=== PATIENT | female | born 1945 | race Caucasian/White ===

== ENCOUNTER 2021-04-07 | Observation (INO) | payer MEDICARE ==
--- NOTE | 2021-04-07 00:37 | ED ---
Chest Pain HPI - General Stated Complaint: Chest Pain Time Seen by Provider: 04/07/21 00:07 Source: RN notes reviewed, old records reviewed Mode of arrival: ambulatory Limitations: no limitations - History of Present Illness Initial Comments: This is a 75-year-old female DF for evaluation. Patient Dese for evaluation of chest pain patient is concern for her heart. Patient still continues to feel like she is having pain throughout on arrival to emergency department. Patient has no prior history of SD or heart attack. Patient's medical history is only significant for high blood pressure Parkinson's disease. Denying any shortness of breath MD Complaint: chest pain -: days(s) Onset: during rest Pain Location: substernal Pain Radiation: LUE Severity: mild Severity scale (1-10): 2 Quality: tightness Consistency: intermittent Improves With: nothing Worsens With: nothing Context: other (none) Anginal Symptoms: sense of impending doom Other Symptoms: palpitations Treatments Prior to Arrival: none - Related Data Home Medications Medication Instructions Recorded Confirmed Chxo-Xldl-Uxhkl 25-100-200 mg 1 each PO TID 03/30/14 03/30/14 [Stalevo 100] lisinopriL [Zestril] 20 mg PO DAILY 03/30/14 03/30/14 Allergies Allergy/AdvReac Type Severity Reaction Status Date / Time No Known Allergies Allergy Verified 04/07/21 00:57 Review of Systems ROS Statement: Those systems with pertinent positive or pertinent negative responses have been documented in the HPI. ROS Other: All systems not noted in ROS Statement are negative. EKG Findings - EKG Comments: EKG Findings:: EKG is sinus rhythm 67, AL 168 QRS 76 QTC 528 Past Medical History Past Medical History: Hypertension Additional Past Medical History / Comment(s): Parkinson's disease History of Any Multi-Drug Resistant Organisms: None Reported Past Surgical History: Hysterectomy Past Psychological History: No Psychological Hx Reported Past Alcohol Use History: None Reported Past Drug Use History: None Reported General Exam General appearance: alert, in no apparent distress Head exam: Present: atraumatic, normocephalic, normal inspection Eye exam: Present: normal appearance, PERRL, EOMI. Absent: scleral icterus, conjunctival injection, periorbital swelling ENT exam: Present: normal exam, mucous membranes moist Neck exam: Present: normal inspection. Absent: tenderness, meningismus, lymphadenopathy Respiratory exam: Present: normal lung sounds bilaterally. Absent: respiratory distress, wheezes, rales, rhonchi, stridor Cardiovascular Exam: Present: regular rate, normal rhythm, normal heart sounds. Absent: systolic murmur, diastolic murmur, rubs, gallop, clicks GI/Abdominal exam: Present: soft, normal bowel sounds. Absent: distended, tenderness, guarding, rebound, rigid Extremities exam: Present: normal inspection, full ROM, normal capillary refill. Absent: tenderness, pedal edema, joint swelling, calf tenderness Back exam: Present: normal inspection Neurological exam: Present: alert, oriented X3, CN II-XII intact Psychiatric exam: Present: normal affect, normal mood Skin exam: Present: warm, dry, intact, normal color. Absent: rash Course Vital Signs 04/07/21 00:10 Temperature 99.1 F Pulse Rate 68 Respiratory 16 Rate Blood Pressure 147/99 O2 Sat by Pulse 94 L Oximetry - Reevaluation(s) Reevaluation #1: 04/07/21 02:03 Medical record is reviewed Reevaluation #2: 04/07/21 02:03 Patient has persistent chest pain here in the ER Reevaluation #3: 04/07/21 02:03 Patient family informed results and questions are answered - Consultations Consultation #1: Spoke with Dr. Kerr we'll admit this patient Chest Pain MDM - MDM 75 female DF for evaluation of chest pain. Patient has mild troponin bump, insignificant will be admitted for trending cardiac observation Disposition Clinical Impression: Chest pain Disposition: ADMITTED IP TO THIS HOSP Condition: Undetermined Is patient prescribed a controlled substance at d/c from ED?: No Referrals: Rick Sumner DO [Primary Care Provider] - 1-2 days
[2021-04-07 00:55] LABS: Basophils # (A) 0.1 k/uL (0-0.2); Basophils % (A) 1 %; Eosinophils # (A) 0.2 k/uL (0-0.7); Eosinophils % (A) 2 %; HCT 35.8 % (34.0-46.0); HGB 11.9 gm/dL (11.4-16.0); Lymphocytes # (A) 0.8 k/uL (1.0-4.8); Lymphocytes % (A) 9 %; MCH 29.7 pg (25.0-35.0); MCHC 33.1 g/dL (31.0-37.0); MCV 89.7 fL (80.0-100.0); Mean Platelet Volume 7.4; Monocytes # (A) 0.7 k/uL (0-1.0); Monocytes % (A) 7 %; Neutrophils # (A) 7.4 k/uL (1.3-7.7); Neutrophils % (A) 81 %; Platelet Count 260 k/uL (150-450); RBC 3.99 m/uL (3.80-5.40); RDW 13.5 % (11.5-15.5); WBC 9.2 k/uL (3.8-10.6)
[2021-04-07 01:06] LABS: ALT <6 U/L (4-34); AST 25 U/L (14-36); African American GFR (CKD) >90 (>60 ml/min/1.73 sqM); Albumin 3.8 g/dL (3.5-5.0); Alkaline Phosphatase 162 U/L (38-126); Anion Gap 8 mmol/L; Blood Urea Nitrogen 21 mg/dL (7-17); Calcium 9.3 mg/dL (8.4-10.2); Carbon Dioxide 25 mmol/L (22-30); Chloride 106 mmol/L (98-107); Glucose 124 mg/dL (74-99); Lipase 131 U/L (23-300); Magnesium 1.9 mg/dL (1.6-2.3); Non-African American GFR(CKD) 84 (>60 ml/min/1.73 sqM); Potassium 3.6 mmol/L (3.5-5.1); Sodium 139 mmol/L (137-145); Total Bilirubin 1.6 mg/dL (0.2-1.3); Total Protein 6.5 g/dL (6.3-8.2)
--- NOTE | 2021-04-07 01:14 | XR ---
EXAMINATION TYPE: XR chest 2V DATE OF EXAM: 04/07/2021 COMPARISON: NONE HISTORY: Chest pain TECHNIQUE: 2 views FINDINGS: There is no heart failure nor confluent pneumonic infiltrate. Costophrenic angles are clear . There are no hilar masses. There are chest leads. Thoracic aorta is atheromatous. Bony thorax shows T7 anterior wedging 25%. IMPRESSION: No active cardiopulmonary disease.
[2021-04-07 01:31] LABS: Prothrombin Time 10.5 sec (9.0-12.0)
[2021-04-07] MEDS ORDERED: ASPIRIN 81 MG PO STA (02:01)
[2021-04-07] MEDS ORDERED: MORPHINE SULFATE 4 MG/ML SYRINGE IV PRN (02:01)
[2021-04-07] MEDS ORDERED: NITROGLYCERIN SL TABS 0.4 MG TAB SUBLINGUAL PRN (02:01)
[2021-04-07] MEDS ORDERED: HEPARIN SODIUM 1,000 UN/ML (10ML VL) IV ONE (02:01)
[2021-04-07 02:06] LABS: Partial Thromboplastin Time 19.3 sec (22.0-30.0)
[2021-04-07] MEDS ORDERED: SODIUM CHLORIDE 0.9% 1,000 ML IV SCH (02:15)
[2021-04-07] MEDS: CARBIDOPA-LEVODOPA 25-100 MG 1 EACH TAB PO SCH ×2 (06:57→09:15)
[2021-04-07 08:35] VITALS: PULSE 72; RESP 16
[2021-04-07] MEDS ORDERED: CARBIDOPA-LEVODOPA 25-100 MG 1 EACH TAB PO SCH (09:00)
[2021-04-07] MEDS ORDERED: lisinopriL 20 MG TAB PO SCH (09:00)
[2021-04-07] MEDS ORDERED: METOPROLOL SUCCINATE (ER) 50 MG TAB.ER.24H PO SCH (09:00)
[2021-04-07 10:01] VITALS: BP 135/56; TEMP 98.2
--- NOTE | 2021-04-07 11:10 | ECHOF ---
Referral Reason:LV function MEASUREMENTS -------- HEIGHT: 152.4 cm WEIGHT: 40.8 kg BP: 135/56 RVIDd: 3.1 cm (< 3.3) IVSd: 1.5 cm (0.6 - 1.1) LVIDd: 3.2 cm (3.9 - 5.3) LVPWd: 1.4 cm (0.6 - 1.1) IVSs: 1.7 cm LVIDs: 1.4 cm LVPWs: 1.8 cm LAESV Index (A-L): 29.83 ml/m Ao Diam: 3.1 cm (2.0 - 3.7) AV Cusp: 2.1 cm (1.5 - 2.6) LA Diam: 3.3 cm (2.7 - 3.8) MV EXCURSION: 13.015 mm (> 18.000) MV EF SLOPE: 32 mm/s (70 - 150) EPSS: 0.1 cm MV E Ad: 0.78 m/s MV DecT: 275 ms MV A Ad: 1.10 m/s MV E/A Ratio: 0.71 RAP: 5.00 mmHg RVSP: 53.17 mmHg FINDINGS -------- Sinus rhythm. This was a technically adequate study. The left ventricular size is normal. There is moderate concentric left ventricular hypertrophy. O verall left ventricular systolic function is normal with, an EF between 55 - 60 %. The diastolic fi lling pattern is normal for the age of the patient 11.29. The right ventricle is normal in size. LA is midly dilated 29-33ml/m2. The right atrial size is normal. Eustachian valve seen in the right atrium (normal finding). Interatrial and interventricular septum intact. There is no evidence of aortic regurgitation. There is no evidence of aortic stenosis. There is trace to mild mitral regurgitation. Moderate tricuspid regurgitation present. There is moderate to severe pulmonary hypertension. The right ventricular systolic pressure, as measured by Doppler, is 53.17mmHg. Trace/mild (physiologic) pulmonic regurgitation. The aortic root size is normal. Normal inferior vena cava with normal inspiratory collapse consistent with estimated right atrial pre ssure of 5 mmHg. There is no pericardial effusion. CONCLUSIONS -------- 1. The left ventricular size is normal. 2. There is moderate concentric left ventricular hypertrophy. 3. Overall left ventricular systolic function is normal with, an EF between 55 - 60 %. 4. The diastolic filling pattern is normal for the age of the patient 11.29 5. LA is midly dilated 29-33ml/m2. 6. Eustachian valve seen in the right atrium (normal finding). 7. There is trace to mild mitral regurgitation. 8. Moderate tricuspid regurgitation present. 9. There is moderate to severe pulmonary hypertension. 10. The right ventricular systolic pressure, as measured by Doppler, is 53.17mmHg. 11. Trace/mild (physiologic) pulmonic regurgitation. PRODUCTION INSPECTOR: Jennifer Brooke RDCS
--- NOTE | 2021-04-07 15:15 | P.DS ---
Providers Date of admission: 04/07/21 02:01 Attending physician: Tin Castañeda Consults: 04/07/21 02:01 Consult Physician Urgent Consulting Provider: Pritesh Latif Consult Reason/Comments: cp Do you want consulting provider notified?: Yes Primary care physician: Rick Sumner [facility] Course: Please refer to my history of present illness for further details Patient Condition at Discharge: Fair Plan - Discharge Summary Discharge Rx Participant: No New Discharge Prescriptions: New Isosorbide Mononitrate ER [Imdur] 30 mg PO DAILY 30 Days #30 tab.er.24h Continue lisinopriL [Zestril] 20 mg PO DAILY@0630 Cholecalciferol [Vitamin D3 (25 Mcg = 1000 Iu)] 100 mcg PO HS amantadine HCL [Amantadine] 100 mg PO TID@0630,1200,1830 Atorvastatin [Lipitor] 40 mg PO HS Metoprolol Succinate (ER) [Toprol XL] 50 mg PO DAILY@0630 Carbidopa-Levodopa 25-100 mg [Sinemet 25-100 mg] 1 tab PO TID@0630,1200,1830 Vitamin B Complex 1 cap PO DAILY Calcium Carbonate [Calcium] 600 mg PO DAILY Discharge Medication List lisinopriL [Zestril] 20 mg PO DAILY@0630 03/30/14 [History] Atorvastatin [Lipitor] 40 mg PO HS 04/07/21 [History] Calcium Carbonate [Calcium] 600 mg PO DAILY 04/07/21 [History] Carbidopa-Levodopa 25-100 mg [Sinemet 25-100 mg] 1 tab PO TID@0630,1200,1830 04/07/21 [History] Cholecalciferol [Vitamin D3 (25 Mcg = 1000 Iu)] 100 mcg PO HS 04/07/21 [History] Isosorbide Mononitrate ER [Imdur] 30 mg PO DAILY 30 Days #30 tab.er.24h 04/07/21 [Rx] Metoprolol Succinate (ER) [Toprol XL] 50 mg PO DAILY@0630 04/07/21 [History] Vitamin B Complex 1 cap PO DAILY 04/07/21 [History] amantadine HCL [Amantadine] 100 mg PO TID@0630,1200,1830 04/07/21 [History] Follow up Appointment(s)/Referral(s): Rick Sumner DO [Primary Care Provider] - 04/12/21 2:15 am Mahad Mackey MD [STAFF PHYSICIAN] - 3 Weeks Patient Instructions/Handouts: Chest Pain (DC) Discharge Disposition: HOME SELF-CARE
--- NOTE | 2021-04-07 15:15 | P.HPIM ---
History of Present Illness Patient presents on 75-year-old female came in with comments of precordial chest pain moderate severity nonradiating no associated shortness of breath diaphoresis or lightheadedness pain committee resolved at this time. Patient denied any fever chills. Just pain is nonpruritic and not associated with food. Patient had an EKG which showed sinus rhythm no significant the abnormality except for some nonspecific ST-T wave changes. Patient had an echocardiogram which did not show any wall motion did show moderate pulmonary hypertension. Patient was cleared by cardiology patient was subsequently discharged. He does have history of Parkinson's REVIEW OF SYSTEMS: CONSTITUTIONAL: No fever, no malaise, no fatigue. HEENT: No recent visual problems or hearing problems. Denied any sore throat. CARDIOVASCULAR: No orthopnea, PND, no palpitations, no syncope. PULMONARY: No shortness of breath, no cough, no hemoptysis. GASTROINTESTINAL: No diarrhea, no nausea, no vomiting, no abdominal pain. NEUROLOGICAL: No headaches, no weakness, no numbness. HEMATOLOGICAL: Denies any bleeding or petechiae. GENITOURINARY: Denies any burning micturition, frequency, or urgency. MUSCULOSKELETAL/RHEUMATOLOGICAL: Denies any joint pain, swelling, or any muscle pain. ENDOCRINE: Denies any polyuria or polydipsia. The rest of the 14-point review of systems is negative. PHYSICAL EXAMINATION: GENERAL: The patient is alert and oriented x3, not in any acute distress. Well developed, well nourished. HEENT: Pupils are round and equally reacting to light. EOMI. No scleral icterus. No conjunctival pallor. Normocephalic, atraumatic. No pharyngeal erythema. No thyromegaly. CARDIOVASCULAR: S1 and S2 present. No murmurs, rubs, or gallops. PULMONARY: Chest is clear to auscultation, no wheezing or crackles. ABDOMEN: Soft, nontender, nondistended, normoactive bowel sounds. No palpable organomegaly. MUSCULOSKELETAL: No joint swelling or deformity. EXTREMITIES: No cyanosis, clubbing, or pedal edema. NEUROLOGICAL: Gross neurological examination did not reveal any focal deficits. SKIN: No rashes. Assessment and plan -Chest pain: Rule out a concurrent syndromes cardiology evaluated and cleared for discharge pain resolved -Moderate pulmonary hypertension because of her previous smoking history most probably -Parkinson's for which patient is on carbidopa and levodopa for which she'll continue -Hypertension -Hyperlipidemia -Coronary artery disease Patient is being discharged today Past Medical History Past Medical History: Hypertension Additional Past Medical History / Comment(s): Parkinson's disease History of Any Multi-Drug Resistant Organisms: None Reported Past Surgical History: Hysterectomy Past Psychological History: No Psychological Hx Reported Smoking Status: Former smoker Past Alcohol Use History: None Reported Past Drug Use History: None Reported Medications and Allergies Home Medications Medication Instructions Recorded Confirmed Type lisinopriL [Zestril] 20 mg PO DAILY@0630 03/30/14 04/07/21 History Atorvastatin [Lipitor] 40 mg PO HS 04/07/21 04/07/21 History Calcium Carbonate [Calcium] 600 mg PO DAILY 04/07/21 04/07/21 History Carbidopa-Levodopa 25-100 mg 1 tab PO TID@0630,1200,1830 04/07/21 04/07/21 History [Sinemet 25-100 mg] Cholecalciferol [Vitamin D3 (25 100 mcg PO HS 04/07/21 04/07/21 History Mcg = 1000 Iu)] Isosorbide Mononitrate ER [Imdur] 30 mg PO DAILY 30 Days #30 04/07/21 Rx tab.er.24h Metoprolol Succinate (ER) [Toprol 50 mg PO DAILY@0630 04/07/21 04/07/21 History XL] Vitamin B Complex 1 cap PO DAILY 04/07/21 04/07/21 History amantadine HCL [Amantadine] 100 mg PO TID@0630,1200,1830 04/07/21 04/07/21 History Allergies Allergy/AdvReac Type Severity Reaction Status Date / Time No Known Allergies Allergy Verified 04/07/21 08:18 Physical Exam Vitals: Vital Signs Temp Pulse Pulse Resp BP BP Pulse Ox 04/07/21 09:30 98.2 F 72 16 135/56 97 04/07/21 08:31 72 16 142/67 97 04/07/21 06:00 68 20 162/68 98 04/07/21 03:59 66 20 178/79 96 04/07/21 02:01 66 20 182/83 99 04/07/21 00:10 99.1 F 68 16 147/99 94 L Intake and Output 04/07/21 04/07/21 04/07/21 06:59 14:59 22:59 Other: Weight 40.823 kg 40.823 kg Results CBC & Chem 7: 04/07/21 00:39 04/07/21 00:39 Labs: Abnormal Lab Results - Last 24 Hours (Table) 04/07/21 04/07/21 04/07/21 Range/Units 00:39 00:39 00:39 Lymphocytes # 0.8 L (1.0-4.8) k/uL APTT 19.3 L (22.0-30.0) sec BUN 21 H (7-17) mg/dL Glucose 124 H (74-99) mg/dL Total Bilirubin 1.6 H (0.2-1.3) mg/dL Alkaline Phosphatase 162 H (38-126) U/L Thrombosis Risk Factor Assmnt - Choose All That Apply Any of the Below Risk Factors Present?: No Other Risk Factors: Yes Each Risk Factor Represents 3 Points: Age 75 years or older Other congenital or acquired thrombophilia - If yes, enter type in comment: No Thrombosis Risk Factor Assessment Total Risk Factor Score: 3 Thrombosis Risk Factor Assessment Level: Moderate Risk
--- NOTE | 2021-04-07 15:56 | CONS ---
CONSULTATION CHIEF COMPLAINT: Chest pain. Ariana is a 75-year-old lady with history of Parkinsonism, hypertension, and dyslipidemia who presented to hospital complaining of chest pain. She has had chest discomfort in the left precordial area without any shortness of breath or diaphoresis. The patient's movement disorder has gotten worse over the last several weeks and she has had recurrent falls including the last one about 2 weeks ago. The pain is probably musculoskeletal. An EKG shows sinus rhythm with nonspecific ST-T wave changes. The patient had 3 sets of cardiac enzymes that are all within normal limits. The BNP is elevated at 2318 and it is not related to congestive heart failure. The patient and her do not want any invasive procedures. There is no point in performing stress tests. I will obtain a 2D echo to rule out prior myocardial infarction versus LV function. The patient is already on optimal medical therapy and I will add Imdur 30 mg daily to her current medical regimen. PAST MEDICAL HISTORY: Significant for hypertension, dyslipidemia, Parkinsonism. MEDICATIONS: Medications at home include lisinopril 20 daily, amantadine 100 t.i.d., Toprol-XL 50 daily, Sinemet, calcium, and Lipitor. ALLERGIES: No known drug allergies. FAMILY HISTORY: Negative for premature coronary artery disease. SOCIAL HISTORY: Negative for smoking, EtOH abuse, or drug abuse. REVIEW OF SYSTEMS: HEENT is unremarkable. CARDIAC as described above. RESPIRATORY as described above. ALLERGY/IMMUNOLOGY: Negative. SKIN: Negative. MUSCULOSKELETAL: Negative. ENDOCRINE: Negative. CONSTITUTIONAL: Negative. ONCOLOGICAL: Negative. HEATER INSTALLER: Significant for movement disorder. PHYSICAL EXAM: On exam, patient is comfortable at rest. Vital signs are stable. There is no jugular venous distention. Carotid upstroke is normal. There is no bruit. CHEST: Exam reveals good air entry bilaterally. HEART: Exam reveals first and second heart sounds. No gallop. No murmur. ABDOMEN: Soft. EXAM OF EXTREMITIES: Did not reveal any edema. Peripheral pulses are felt. HEATER INSTALLER EXAM: HEATER INSTALLER exam shows that the patient has movement disorder. EKG shows nonspecific ST-T wave changes. Cardiac enzymes are negative. ASSESSMENT: Precordial chest pain, atypical, probably noncardiac, but we cannot rule out ischemic heart disease. We will treat her with optimal medical therapy for presumptive diagnosis of CAD. I will obtain a 2D echo. She is not a candidate for either invasive or noninvasive testing and she does want to go through invasive testing in any event. From my standpoint, patient can be discharged home and outpatient followup arranged through her primary care physician. Thank you for allowing me to participate in the care of this pleasant lady. CLARENCE / SHANE: [id number] /
[2021-04-07] MEDS ORDERED: ATORVASTATIN 40 MG TAB PO SCH (21:00)
[2021-04-08] MEDS ORDERED: ASPIRIN 325 MG TAB PO SCH (09:00)
[2021-04-08] MEDS ORDERED: ISOSORBIDE MONONITRATE ER 60 MG TAB.ER.24H PO SCH ×2 (09:00)
[2021-04-08] MEDS ORDERED: ISOSORBIDE MONONITRATE ER 30 MG TAB.ER.24H PO SCH (09:00)
== END 2021-04-07 13:50 | disposition home or self-care (01) ==
LOC: EC → 6NMEDSUR 02:01
PROVIDERS: ADMIT Internal Medicine; ATTEND Internal Medicine
DX: R07.2 Precordial pain (principal); I27.20 Pulmonary hypertension, unspecified; G20 Parkinson's disease; I10 Essential (primary) hypertension; E78.5 Hyperlipidemia, unspecified; I25.10 Atherosclerotic heart disease of native coronary artery without angina pectoris; G25.9 Extrapyramidal and movement disorder, unspecified; R29.6 Repeated falls; Z79.899 Other long term (current) drug therapy; Z87.891 Personal history of nicotine dependence; Z90.710 Acquired absence of both cervix and uterus
CPT/HCPCS: 99285; 36415; 93005; 93306; 83880; 80053; 83690; 83735; 84484; 85025; 85610; 85730; 71046; G0378; J1644

== ENCOUNTER → 2021-06-07 | Outpatient (CLI) | payer MEDICARE ==
[2021-06-08 16:11] LABS: Folate, Serum >24.0 ng/mL
== END | disposition home or self-care (01) ==
LOC: LABWHC1 14:42
PROVIDERS: ATTEND Psychiatry & Neurology Neurology
DX: R41.3 Other amnesia (principal)
CPT/HCPCS: 36415; 82607; 82746

== ENCOUNTER 2021-06-29 16:52 | Inpatient (IN) | payer MEDICARE ==
[2021-06-29] MEDS ORDERED: SODIUM CHLORIDE 0.9% 500 ML 500 ML IV ONE (20:16)
--- NOTE | 2021-06-29 20:19 | ED ---
Altered Mental Status HPI - General Chief Complaint: Altered Mental Status Stated Complaint: Sent by /Isabela Time Seen by Provider: 06/29/21 20:07 Source: patient, family (), RN notes reviewed, old records reviewed Mode of arrival: wheelchair Limitations: physical limitation - History of Present Illness Initial Comments: This is a 76-year-old female patient presents to the emergency room with her . Her states that she has been increasingly weak and hallucinating for the past 5 days. She fell out of bed yesterday and sustained an abrasion and bruise to the left side of her face. He states that her Parkinson's is getting worse and he is unable to care for her at home. He did call Dr. Sumner and they told her to come to the emergency room for evaluation. Denies any fevers, nausea vomiting or diarrhea. He states that her urine is dark in color and she has had poor oral intake. MD Complaint: altered mental status -: days(s) (5) Consistency of Symptoms: waxing and waning Context: other (History of Parkinson's) Associated Symptoms: difficulty walking, other (Constipation, fell out of bed) - Related Data Home Medications Medication Instructions Recorded Confirmed lisinopriL [Zestril] 20 mg PO DAILY@0630 03/30/14 06/29/21 Atorvastatin [Lipitor] 40 mg PO HS 04/07/21 06/29/21 Calcium Carbonate [Calcium] 600 mg PO DAILY 04/07/21 06/29/21 Carbidopa-Levodopa 25-100 mg 1 tab PO TID@0630,1200,1830 04/07/21 06/29/21 [Sinemet 25-100 mg] Cholecalciferol [Vitamin D3 (25 100 mcg PO HS 04/07/21 06/29/21 Mcg = 1000 Iu)] Metoprolol Succinate (ER) [Toprol 50 mg PO DAILY@0630 04/07/21 06/29/21 XL] amantadine HCL [Amantadine] 100 mg PO TID@0630,1200,1830 04/07/21 06/29/21 Carbidopa/Levodopa [Parcopa 25-100 1 tab SL BID PRN 06/29/21 06/29/21 mg Odt] Cbd Oil 75 mg PO BID 06/29/21 06/29/21 Donepezil HCl [Aricept] 5 mg PO DAILY 06/29/21 06/29/21 Super B Complex 1 tab PO DAILY 06/29/21 06/29/21 Previous Rx's Medication Instructions Recorded Isosorbide Mononitrate ER [Imdur] 30 mg PO DAILY 30 Days #30 04/07/21 tab.er.24h Allergies Allergy/AdvReac Type Severity Reaction Status Date / Time No Known Allergies Allergy Verified 06/29/21 18:38 Review of Systems ROS Statement: Those systems with pertinent positive or pertinent negative responses have been documented in the HPI. ROS Other: All systems not noted in ROS Statement are negative. Past Medical History Past Medical History: Hypertension Additional Past Medical History / Comment(s): Parkinson's disease History of Any Multi-Drug Resistant Organisms: None Reported Past Surgical History: Hysterectomy Past Psychological History: No Psychological Hx Reported Smoking Status: Former smoker Past Alcohol Use History: None Reported Past Drug Use History: None Reported General Exam Limitations: altered mental status, physical limitation General appearance: alert Head exam: Present: other (Bruising to the left cheek bone abrasion to the nose) Eye exam: Present: normal appearance, PERRL, EOMI. Absent: scleral icterus, conjunctival injection, periorbital swelling ENT exam: Present: normal exam, mucous membranes dry Neck exam: Present: normal inspection, other (Patient has a soft collar on, previous neck injury several years ago). Absent: meningismus Respiratory exam: Present: normal lung sounds bilaterally. Absent: respiratory distress, wheezes, rales, rhonchi, stridor Cardiovascular Exam: Present: normal rhythm, bradycardia, normal heart sounds. Absent: systolic murmur, diastolic murmur, rubs, gallop, clicks, JVD GI/Abdominal exam: Present: soft, normal bowel sounds. Absent: distended, tenderness, guarding, rebound, rigid Extremities exam: Present: normal inspection, full ROM, normal capillary refill. Absent: tenderness, pedal edema, joint swelling, calf tenderness Neurological exam: Present: alert Expanded Neurological exam: Present: tremor (Bilateral arms) Cerebellar function: Finger to Nose: Abnormal Right, Abnormal Left Motor strength exam: RUE: 4, LUE: 4, RLE: 4, LLE: 4 Eye Response: (4) open spontaneously Motor Response: (6) obeys commands Verbal Response: (4) confused conversation Johan Total: 14 Psychiatric exam: Present: flat affect Skin exam: Present: warm, dry, intact, normal color, abrasion (Nose), other (Bruising to the left cheek). Absent: rash Course Vital Signs 06/29/21 06/29/21 06/29/21 18:35 21:30 21:33 Temperature 97.9 F Pulse Rate 48 L 48 L Respiratory 19 18 Rate Blood Pressure 160/69 200/83 O2 Sat by Pulse 100 94 L Oximetry 06/29/21 06/30/21 23:03 00:00 Temperature 97.9 F Pulse Rate 52 L 53 L Respiratory 18 18 Rate Blood Pressure 141/98 140/79 O2 Sat by Pulse 94 L 96 Oximetry Medical Decision Making - Medical Decision Making EKG shows sinus bradycardia with a ventricular rate of 52. The troponin is positive at 0.080. CT the brain and C-spine shows mild degenerative disc changes with on cervical spine. There is chronic. Ventricular white matter ischemic changes with age related atrophy. There is no evidence of infarcts, mass or intracranial hemorrhage. Chest x-ray shows no acute cardiopulmonary process. There is a nodular opacity in the left lateral base summary to prior exam dated 04/07/2021. Patient will be admitted to the hospital to trend her troponin and evaluation for generalized weakness. I did speak with Dr Draper who advised to hold heparin and will trend troponin. Case discussed with Dr Dimas - Lab Data Result diagrams: 06/29/21 21:26 06/29/21 21:26 Lab Results 06/29/21 06/29/21 06/29/21 Range/Units 21:26 21:26 21:26 WBC 8.3 (3.8-10.6) k/uL RBC 3.33 L (3.80-5.40) m/uL Hgb 10.3 L (11.4-16.0) gm/dL Hct 30.7 L (34.0-46.0) % MCV 92.2 (80.0-100.0) fL MCH 31.0 (25.0-35.0) pg MCHC 33.6 (31.0-37.0) g/dL RDW 15.0 (11.5-15.5) % Plt Count 233 (150-450) k/uL MPV 7.5 Neutrophils % 85 % Lymphocytes % 8 % Monocytes % 5 % Eosinophils % 0 % Basophils % 0 % Neutrophils # 7.1 (1.3-7.7) k/uL Lymphocytes # 0.7 L (1.0-4.8) k/uL Monocytes # 0.4 (0-1.0) k/uL Eosinophils # 0.0 (0-0.7) k/uL Basophils # 0.0 (0-0.2) k/uL PT 11.4 (9.0-12.0) sec INR 1.1 (<1.2) APTT 22.2 (22.0-30.0) sec Sodium 141 (137-145) mmol/L Potassium 4.3 (3.5-5.1) mmol/L Chloride 107 (98-107) mmol/L Carbon Dioxide 24 (22-30) mmol/L Anion Gap 10 mmol/L BUN 25 H (7-17) mg/dL Creatinine 1.12 H (0.52-1.04) mg/dL Est GFR (CKD-EPI)AfAm 54 (>60 ml/min/1.73 sqM) Est GFR (CKD-EPI)NonAf 47 (>60 ml/min/1.73 sqM) Glucose 117 H (74-99) mg/dL Calcium 9.3 (8.4-10.2) mg/dL Total Bilirubin 2.1 H (0.2-1.3) mg/dL AST 26 (14-36) U/L ALT 6 (4-34) U/L Alkaline Phosphatase 118 (38-126) U/L Troponin I (0.000-0.034) ng/mL Total Protein 6.6 (6.3-8.2) g/dL Albumin 4.0 (3.5-5.0) g/dL Coronavirus (PCR) (Not Detectd) 06/29/21 06/29/21 Range/Units 21:26 22:20 WBC (3.8-10.6) k/uL RBC (3.80-5.40) m/uL Hgb (11.4-16.0) gm/dL Hct (34.0-46.0) % MCV (80.0-100.0) fL MCH (25.0-35.0) pg MCHC (31.0-37.0) g/dL RDW (11.5-15.5) % Plt Count (150-450) k/uL MPV Neutrophils % % Lymphocytes % % Monocytes % % Eosinophils % % Basophils % % Neutrophils # (1.3-7.7) k/uL Lymphocytes # (1.0-4.8) k/uL Monocytes # (0-1.0) k/uL Eosinophils # (0-0.7) k/uL Basophils # (0-0.2) k/uL PT (9.0-12.0) sec INR (<1.2) APTT (22.0-30.0) sec Sodium (137-145) mmol/L Potassium (3.5-5.1) mmol/L Chloride (98-107) mmol/L Carbon Dioxide (22-30) mmol/L Anion Gap mmol/L BUN (7-17) mg/dL Creatinine (0.52-1.04) mg/dL Est GFR (CKD-EPI)AfAm (>60 ml/min/1.73 sqM) Est GFR (CKD-EPI)NonAf (>60 ml/min/1.73 sqM) Glucose (74-99) mg/dL Calcium (8.4-10.2) mg/dL Total Bilirubin (0.2-1.3) mg/dL AST (14-36) U/L ALT (4-34) U/L Alkaline Phosphatase (38-126) U/L Troponin I 0.080 H* (0.000-0.034) ng/mL Total Protein (6.3-8.2) g/dL Albumin (3.5-5.0) g/dL Coronavirus (PCR) Not Detected (Not Detectd) - EKG Data Rate: bradycardia (Ventricular rate of 48, DE interval 0.162, QRS 0.86, QTC 0.414) Disposition Clinical Impression: ACS (acute coronary syndrome), Weakness Disposition: ADMITTED IP TO THIS [facility] Decision Date: 06/29/21 Decision Time: 23:39
--- NOTE | 2021-06-29 21:34 | XR ---
EXAMINATION TYPE: XR chest 1V portable DATE OF EXAM: 06/29/2021 COMPARISON: Chest radiograph 04/07/2021 HISTORY: Altered mental status TECHNIQUE: Single frontal view of the chest is obtained. FINDINGS: Cardiomediastinal silhouette and pulmonary vasculature are within normal limits. Increased reticular opacity and ill cuffing cuffing similar to prior examination. Nodular opacity at the left base simila r to prior. No consolidation, effusion or pneumothorax. IMPRESSION: 1. Chronic changes without an acute cardiac pulmonary process. 2. Nodular opacity the left lateral base similar to prior. Correlate with cross-sectional imaging if clinically warranted.
[2021-06-29 21:43] LABS: Basophils % (A) 0 %; Eosinophils % (A) 0 %; HCT 30.7 % (34.0-46.0); HGB 10.3 gm/dL (11.4-16.0); Lymphocytes # (A) 0.7 k/uL (1.0-4.8); Lymphocytes % (A) 8 %; MCHC 33.6 g/dL (31.0-37.0); MCV 92.2 fL (80.0-100.0); Mean Platelet Volume 7.5; Monocytes # (A) 0.4 k/uL (0-1.0); Monocytes % (A) 5 %; Neutrophils # (A) 7.1 k/uL (1.3-7.7); Neutrophils % (A) 85 %; Platelet Count 233 k/uL (150-450); RBC 3.33 m/uL (3.80-5.40); WBC 8.3 k/uL (3.8-10.6)
[2021-06-29] MEDS ORDERED: hydrALAZINE HCL 20 MG/ML 1 ML VIAL IVP STA (21:47)
[2021-06-29] MEDS ORDERED: CARBIDOPA-LEVODOPA 25-100 MG 1 EACH TAB PO STA (21:48)
[2021-06-29 21:52] LABS: INR 1.1 (<1.2); Partial Thromboplastin Time 22.2 sec (22.0-30.0); Prothrombin Time 11.4 sec (9.0-12.0)
[2021-06-29 21:55] LABS: Calcium 9.3 mg/dL (8.4-10.2); Potassium 4.3 mmol/L (3.5-5.1); Total Bilirubin 2.1 mg/dL (0.2-1.3); Total Protein 6.6 g/dL (6.3-8.2)
--- NOTE | 2021-06-29 23:26 | CT ---
EXAMINATION TYPE: CT brain terry martin DATE OF EXAM: 06/29/2021 COMPARISON: 03/30/2014 HISTORY: Fall CT DLP: 1194 mGycm, Automated exposure control for dose reduction was used. CONTRAST: Patient injected with 0 mL of Isovue 300. CT of the brain is performed utilizing 3 mm thick sections through the posterior fossa and 3 mm thick sections through the remaining calvarium. Study is performed within 24 hours of arrival to the hospital. No abnormal hyperdensity is present to suggest an acute intracranial hemorrhage. No mass lesion is evident. No acute infarcts are evident. Periventricular white matter hypodensity is present likely on the bas is of chronic white matter ischemic change. There is hypodensity along the anterior limb external cap jacquie left basal ganglion likely related to some ischemic change. No acute changes are identified. Ventricles and sulci are prominent for the patient age. Paranasal sinuses and mastoid air cells within the [id number] are clear. IMPRESSIONS: 1. Chronic periventricular white matter ischemic changes with age related atrophy. CT cervical spine. COMPARISON: None CT of the cervical spine is performed in the axial plane at 2 mm thick sections. Reconstructed image s in the coronal, and sagittal plane are reviewed on the computer. No acute fractures are evident. Vertebral body alignment is normal. Diffuse disc space narrowing is present. Prevertebral space is normal. Posterior spinal lamellar line is intact. Vertebral body heights are preserved. Some right paracentral endplate spurring is present at C5-C6. No AP spinal canal stenosis is present. 2 No neural foraminal stenosis is evident. IMPRESSIONS: 1. Mild degenerative disc changes within the cervical spine
[2021-06-29] MEDS ORDERED: NALOXONE 0.4 MG/ML 1 ML VIAL IV PRN (23:34)
[2021-06-29] MEDS ORDERED: NITROGLYCERIN SL TABS 0.4 MG TAB SUBLINGUAL PRN (23:36)
[2021-06-30] MEDS ORDERED: HEPARIN SODIUM 1,000 UN/ML (10ML VL) IV PRN (00:27)
[2021-06-30] MEDS ORDERED: HEPARIN SODIUM 1,000 UN/ML (10ML VL) IV ONE (00:27)
[2021-06-30] MEDS: HEPARIN SOD,PORK IN 0.45% NACL 25,000 UNIT in 0.45% NACL 1 250ML.BAG IV SCH (01:22)
[2021-06-30 01:45] LABS: Basophils % (A) 0 %; Eosinophils % (A) 0 %; HGB 10.6 gm/dL (11.4-16.0); Lymphocytes # (A) 0.8 k/uL (1.0-4.8); Lymphocytes % (A) 10 %; MCH 29.8 pg (25.0-35.0); MCHC 32.1 g/dL (31.0-37.0); Mean Platelet Volume 7.9; Monocytes # (A) 0.4 k/uL (0-1.0); Monocytes % (A) 5 %; Neutrophils # (A) 7.1 k/uL (1.3-7.7); Neutrophils % (A) 83 %; Platelet Count 249 k/uL (150-450); RBC 3.55 m/uL (3.80-5.40); RDW 15.1 % (11.5-15.5); WBC 8.5 k/uL (3.8-10.6)
[2021-06-30 02:06] LABS: Prothrombin Time 11.1 sec (9.0-12.0)
[2021-06-30 02:06] LABS: Appearance,Urine Cloudy (Clear); Bacteria,Urine Rare /hpf; Bilirubin,Urine Negative (Negative); Blood,Urine Small (Negative); Color,Urine Yellow; Glucose,Urine (UA) Negative (Negative); Hyaline Casts,Urine 15 /lpf (0-2); Ketones,Urine Negative (Negative); Leukocyte Esterase,Urine Large (Negative); Mucus,Urine Rare /hpf; Nitrite,Urine Negative (Negative); PH, Urine 5.5 (5.0-8.0); Protein,Urine 1+ (Negative); RBC,Urine 33 /hpf (0-5); Specific Gravity,Urine 1.016 (1.001-1.035); Squamous Epithelial Cell,Urine <1 /hpf (0-4); WBC,Urine 86 /hpf (0-5)
[2021-06-30 02:11] LABS: Partial Thromboplastin Time 21.4 sec (22.0-30.0)
[2021-06-30] MEDS ORDERED: hydrALAZINE HCL 20 MG/ML 1 ML VIAL IVP STA (04:39)
[2021-06-30] MEDS ORDERED: lisinopriL 20 MG TAB PO SCH (06:30)
[2021-06-30] MEDS: CARBIDOPA-LEVODOPA 25-100 MG 1 EACH TAB PO SCH ×3 (07:02→18:26)
[2021-06-30] MEDS: METOPROLOL SUCCINATE (ER) 50 MG TAB.ER.24H PO SCH (07:02)
[2021-06-30] MEDS ORDERED: ASPIRIN 325 MG TAB PO SCH (09:00)
[2021-06-30] MEDS: CLOPIDOGREL 75 MG TAB PO SCH (09:57)
[2021-06-30] MEDS: ISOSORBIDE MONONITRATE ER 30 MG TAB.ER.24H PO SCH (09:57)
[2021-06-30] MEDS: CALCIUM CARBONATE 500 MG CHEWABLE PO SCH (09:57)
[2021-06-30] MEDS: ASPIRIN 81 MG PO SCH (09:57)
[2021-06-30] MEDS: lisinopriL 20 MG TAB PO SCH ×2 (09:57→21:24)
[2021-06-30 10:48] LABS: Chol/HDL Ratio 1.69 Ratio; HDL Cholesterol 61.5 mg/dL (40.00-60.00); LDL Cholesterol,Calculated 27.4 mg/dL (0.0-131.0); Triglycerides 75.7 mg/dL (0.00-149.00); VLDL Calculation 15.14 mg/dL (5.00-40.00)
--- NOTE | 2021-06-30 12:00 | ECHOF ---
Referral Reason:abnormal troponins MEASUREMENTS -------- HEIGHT: 152.4 cm WEIGHT: 34.5 kg BP: RVIDd: 2.9 cm (< 3.3) IVSd: 1.0 cm (0.6 - 1.1) LVIDd: 3.6 cm (3.9 - 5.3) LVPWd: 1.0 cm (0.6 - 1.1) IVSs: 1.5 cm LVIDs: 2.0 cm LVPWs: 1.5 cm LA Diam: 2.6 cm (2.7 - 3.8) LAESV Index (A-L): 30.15 ml/m Ao Diam: 2.9 cm (2.0 - 3.7) AV Cusp: 1.9 cm (1.5 - 2.6) MV EXCURSION: 14.317 mm (> 18.000) MV EF SLOPE: 100 mm/s (70 - 150) EPSS: 0.3 cm MV E Ad: 1.07 m/s MV DecT: 177 ms MV A Ad: 0.56 m/s MV E/A Ratio: 1.91 RAP: 5.00 mmHg RVSP: 64.66 mmHg FINDINGS -------- Sinus rhythm. This was a technically good study. The left ventricular size is normal. Left ventricular wall thickness is normal. Overall left vent ricular systolic function is normal with, an EF between 60 - 65 %. The right ventricle is normal in size. LA is midly dilated 29-33ml/m2. The right atrium is normal in size. Interatrial and interventricular septum intact. There is mild aortic valve sclerosis. Trace to mild aortic regurgitation. Mild mitral annular calcification present. Mild mitral regurgitation is present. Mild tricuspid regurgitation present. There is severe pulmonary hypertension. The right ventricul ar systolic pressure, as measured by Doppler, is 64.66mmHg. Trace/mild (physiologic) pulmonic regurgitation. The aortic root size is normal. Normal inferior vena cava with normal inspiratory collapse consistent with estimated right atrial pre ssure of 5 mmHg. There is no pericardial effusion. CONCLUSIONS -------- 1. The left ventricular size is normal. 2. Left ventricular wall thickness is normal. 3. Overall left ventricular systolic function is normal with, an EF between 60 - 65 %. 4. LA is midly dilated 29-33ml/m2. 5. There is mild aortic valve sclerosis. 6. Trace to mild aortic regurgitation. 7. Mild mitral annular calcification present. 8. Mild mitral regurgitation is present. 9. Mild tricuspid regurgitation present. 10. There is severe pulmonary hypertension. 11. The right ventricular systolic pressure, as measured by Doppler, is 64.66mmHg. 12. Trace/mild (physiologic) pulmonic regurgitation. 13. There is no pericardial effusion. REFERENCE INVESTIGATOR: Makayla White RDCS
[2021-06-30] MEDS: DONEPEZIL 5 MG TAB PO SCH (12:15)
--- NOTE | 2021-06-30 12:49 | P.CRDCN ---
History of Present Illness Consult date: 06/30/21 History of present illness: HISTORY OF PRESENT ILLNESS: This is a 76 year old female with a past medical history significant for hypertension, hyperlipidemia, and Parkinson's disease. 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 We have been asked to see the patient in consultation for abnormal troponins. Patient examined at the bedside. patient was brought to the hospital by her who apparently noticed that the patient has been more weak than normal and has been having hallucinations at home. The patient also fell out of bed yesterday according to ER documentation. The patient currently denies chest pain or pressure. She denies shortness of breath. She denies dizziness or lightheadedness. EKG reveals sinus mechanism with T-wave inversions in anterior lateral leads, seen on previous EKG Chest xray chronic changes without acute cardiac pulmonary process. Nodular opacities left lateral lung base similar to prior. Laboratory data: WBC 8.5. Hemoglobin 10.6. Platelet count 249. Sodium 141. Potassium 4.3. BUN 25. Creatinine 1.12. troponin 0.080. 0.086. 0.096. Current home cardiac medications include Imdur 30 mg daily, lisinopril 20 mg daily, metoprolol succinate 50mg daily, Lipitor 40 mg at night echocardiogram obtained revealed ejection fraction 60-65%, mild mitral regurgitation, mild tricuspid regurgitation, severe pulmonary hypertension REVIEW OF SYSTEMS: At the time of my exam: CONSTITUTIONAL: Denies fever or chills. HEENT: Denies blurred vision, vision changes, or eye pain. Denies hemoptysis CARDIOVASCULAR: Denies chest pain. Denies orthopnea. Denies PND. Denies palpitations RESPIRATORY: Denies shortness of breath. GASTROINTESTINAL: Denies abdominal pain. Denies nausea or vomiting. HEMATOLOGIC: Denies bleeding disorders. GENITOURINARY: Denies any blood in urine. SKIN: Denies pruitis. Denies rash. PHYSICAL EXAM: VITAL SIGNS: Reviewed. GENERAL: Well-developed in no acute distress. HEENT: Head is normocephalic. abrasion noted to left eye and nose.Pupils are equal, round. Sclerae anicteric. Mucous membranes of the mouth are moist. Neck supple. No JVD or thyromegaly LUNGS: Respirations even and unlabored. Lungs essentially clear to auscultation bilaterally. HEART: Regular rate and rhythm. S1 and S2 heard. ABDOMEN: Soft. Nondistended. Nontender. EXTREMITIES: Normal range of motion. No clubbing or cyanosis. Peripheral pulses intact. No lower extremity edema NEUROLOGIC: Awake and alert. Oriented x 3. ASSESSMENT: Generalized weakness and hallucinations, per Status post fall Non-STEMI Hypertension Hyperlipidemia Parkinson's disease PLAN: 2-D echo obtained and reviewed Resume home cardiac medications Increase lisinopril for optimal blood pressure control Add Plavix 75 mg daily Discontinue IV heparin Continue with conservative management at this time Further recommendations pending patient's course Nurse practitioner note has been reviewed by physician. Signing provider agrees with the documented findings, assessment, and plan of care. Past Medical History Past Medical History: Hypertension Additional Past Medical History / Comment(s): Parkinson's disease History of Any Multi-Drug Resistant Organisms: None Reported Past Surgical History: Hysterectomy Past Psychological History: No Psychological Hx Reported Smoking Status: Former smoker Past Alcohol Use History: None Reported Past Drug Use History: None Reported Medications and Allergies Home Medications Medication Instructions Recorded Confirmed Type lisinopriL [Zestril] 20 mg PO DAILY@0630 03/30/14 06/29/21 History Atorvastatin [Lipitor] 40 mg PO HS 04/07/21 06/29/21 History Calcium Carbonate [Calcium] 600 mg PO DAILY 04/07/21 06/29/21 History Carbidopa-Levodopa 25-100 mg 1 tab PO TID@0630,1200,1830 04/07/21 06/29/21 History [Sinemet 25-100 mg] Cholecalciferol [Vitamin D3 (25 100 mcg PO HS 04/07/21 06/29/21 History Mcg = 1000 Iu)] Isosorbide Mononitrate ER [Imdur] 30 mg PO DAILY 30 Days #30 04/07/21 06/29/21 Rx tab.er.24h Metoprolol Succinate (ER) [Toprol 50 mg PO DAILY@0630 04/07/21 06/29/21 History XL] amantadine HCL [Amantadine] 100 mg PO TID@0630,1200,1830 04/07/21 06/29/21 History Carbidopa/Levodopa [Parcopa 25-100 1 tab SL BID PRN 06/29/21 06/29/21 History mg Odt] Cbd Oil 75 mg PO BID 06/29/21 06/29/21 History Donepezil HCl [Aricept] 5 mg PO DAILY 06/29/21 06/29/21 History Super B Complex 1 tab PO DAILY 06/29/21 06/29/21 History Allergies Allergy/AdvReac Type Severity Reaction Status Date / Time No Known Allergies Allergy Verified 06/29/21 18:38 Physical Exam Vitals: Vital Signs Temp Pulse Pulse Resp BP BP Pulse Ox 06/30/21 04:00 97.8 F 55 L 17 198/149 95 06/30/21 02:00 56 L 17 06/30/21 01:48 97.8 F 56 L 17 158/61 95 06/30/21 00:00 97.9 F 53 L 18 140/79 96 06/29/21 23:03 52 L 18 141/98 94 L 06/29/21 21:33 200/83 06/29/21 21:30 48 L 18 94 L 06/29/21 18:35 97.9 F 48 L 19 160/69 100 Intake and Output 06/29/21 06/30/21 06/30/21 22:59 06:59 14:59 Other: Weight 35.834 kg 34.5 kg Results 06/30/21 00:43 06/29/21 21:26 Cardiac Enzymes 06/29/21 06/29/21 06/30/21 Range/Units 21:26 21:26 00:43 AST 26 (14-36) U/L Troponin I 0.080 H* 0.086 H* (0.000-0.034) ng/mL 06/30/21 Range/Units 03:51 AST (14-36) U/L Troponin I 0.096 H* (0.000-0.034) ng/mL Coagulation 06/29/21 06/30/21 06/30/21 Range/Units 21:26 00:43 06:58 PT 11.4 11.1 (9.0-12.0) sec APTT 22.2 21.4 L 37.5 H (22.0-30.0) sec CBC 06/29/21 06/30/21 Range/Units 21:26 00:43 WBC 8.3 8.5 (3.8-10.6) k/uL RBC 3.33 L 3.55 L (3.80-5.40) m/uL Hgb 10.3 L 10.6 L (11.4-16.0) gm/dL Hct 30.7 L 33.0 L (34.0-46.0) % Plt Count 233 249 (150-450) k/uL Comprehensive Metabolic Panel 06/29/21 Range/Units 21:26 Sodium 141 (137-145) mmol/L Potassium 4.3 (3.5-5.1) mmol/L Chloride 107 (98-107) mmol/L Carbon Dioxide 24 (22-30) mmol/L BUN 25 H (7-17) mg/dL Creatinine 1.12 H (0.52-1.04) mg/dL Glucose 117 H (74-99) mg/dL Calcium 9.3 (8.4-10.2) mg/dL AST 26 (14-36) U/L ALT 6 (4-34) U/L Alkaline Phosphatase 118 (38-126) U/L Total Protein 6.6 (6.3-8.2) g/dL Albumin 4.0 (3.5-5.0) g/dL Current Medications Generic Name Dose Route Start Last Admin Trade Name Freq PRN Reason Stop Dose Admin Amantadine HCl 100 mg 06/30/21 06:30 06/30/21 07:02 Amantadine Hcl 100 Mg Cap PO 100 mg TID@0630,1200,1830 [facility] Administration Aspirin 325 mg 06/30/21 09:00 Aspirin 325 Mg Tab PO DAILY [facility] Atorvastatin Calcium 40 mg 06/30/21 21:00 Atorvastatin 40 Mg Tab PO HS [facility] Calcium Carbonate/Glycine 500 mg 06/30/21 09:00 Calcium Carbonate 500 Mg Chewable PO DAILY [facility] Carbidopa/Levodopa 1 each 06/30/21 06:30 06/30/21 07:02 Carbidopa-Levodopa 25-100 Mg 1 Each Tab PO 1 each TID@0630,1200,1830 [facility] Administration Cholecalciferol 100 mcg 06/30/21 21:00 Cholecalciferol 25 Mcg (1000 Iu) Tablet PO HS [facility] Donepezil HCl 5 mg 06/30/21 09:00 Donepezil 5 Mg Tab PO DAILY [facility] Heparin Sodium (Porcine) 0 unit 06/30/21 00:27 Heparin Sodium 1,000 Un/Ml (10ml Vl) IV PER PROTOCOL PRN Low PTT Protocol Heparin Sodium/Sodium Chloride 250 mls @ 4.3 mls/hr 06/30/21 00:30 06/30/21 01:22 25,000 unit/ Sodium Chloride IV 12 units/kg/hr .Q24H [facility] 4.3 mls/hr Administration Protocol 12 UNITS/KG/HR Isosorbide Mononitrate 30 mg 06/30/21 09:00 Isosorbide Mononitrate Er 30 Mg Tab.Er.24h PO DAILY [facility] Lisinopril 20 mg 06/30/21 06:30 06/30/21 07:01 Lisinopril 20 Mg Tab PO 20 mg DAILY@0630 [facility] Administration Metoprolol Succinate 50 mg 06/30/21 06:30 06/30/21 07:02 Metoprolol Succinate (Er) 50 Mg Tab.Er.24h PO 50 mg DAILY@0630 [facility] Administration Naloxone HCl 0.2 mg 06/29/21 23:34 Naloxone 0.4 Mg/Ml 1 Ml Vial IV Q2M PRN Opioid Reversal Nitroglycerin 0.4 mg 06/29/21 23:36 Nitroglycerin Sl Tabs 0.4 Mg Tab SUBLINGUAL Q5M PRN Chest Pain Intake and Output 06/29/21 06/30/21 06/30/21 22:59 06:59 14:59 Other: Weight 35.834 kg 34.5 kg 06/30/21 00:43 06/29/21 21:26
[2021-06-30 13:04] VITALS: BMI 14.8
--- NOTE | 2021-06-30 17:15 | P.HPIM ---
History of Present Illness H&P Date: 06/30/21 Chief Complaint: Mental status change 76-year-old female, history of hypertension, hyperlipidemia, Parkinson's disease and dementia; presents to the emergency room with her . Her states that she has been increasingly weak and hallucinating for the past 5 days. She fell out of bed yesterday and sustained an abrasion and bruise to the left side of her face. He states that her Parkinson's is getting worse and he is unable to care for her at home. He did call Dr. Sumner and they told her to come to the emergency room for evaluation. Denies any fevers, nausea vomiting or diarrhea. He states that her urine is dark in color and she has had poor oral intake. EKG shows sinus bradycardia with a ventricular rate of 52. The troponin is positive at 0.080. CT the brain and C-spine shows mild degenerative disc changes with on cervical spine. There is chronic. Ventricular white matter ischemic changes with age related atrophy. There is no evidence of infarcts, mass or intracranial hemorrhage. Chest x-ray shows no acute cardiopulmonary process. There is a nodular opacity in the left lateral base summary to prior exam dated 04/07/2021. Patient will be admitted to the hospital to trend her troponin and evaluation for generalized weakness. Review of Systems REVIEW OF SYSTEMS: CONSTITUTIONAL: Weakness. HEENT: No recent visual problems or hearing problems. Denied any sore throat. CARDIOVASCULAR: No chest pain, orthopnea, PND, no palpitations, no syncope. PULMONARY: No shortness of breath, no cough, no hemoptysis. GASTROINTESTINAL: No diarrhea, no nausea, no vomiting, no abdominal pain. NEUROLOGICAL: No headaches, no weakness, no numbness. HEMATOLOGICAL: Denies any bleeding or petechiae. GENITOURINARY: Denies any burning micturition, frequency, or urgency. MUSCULOSKELETAL/RHEUMATOLOGICAL: Denies any joint pain, swelling, or any muscle pain. ENDOCRINE: Denies any polyuria or polydipsia. The rest of the 14-point review of systems is negative. Past Medical History Past Medical History: Hypertension Additional Past Medical History / Comment(s): Parkinson's disease History of Any Multi-Drug Resistant Organisms: None Reported Past Surgical History: Hysterectomy Past Psychological History: No Psychological Hx Reported Smoking Status: Former smoker Past Alcohol Use History: None Reported Past Drug Use History: None Reported Medications and Allergies Home Medications Medication Instructions Recorded Confirmed Type lisinopriL [Zestril] 20 mg PO DAILY@0630 03/30/14 06/29/21 History Atorvastatin [Lipitor] 40 mg PO HS 04/07/21 06/29/21 History Calcium Carbonate [Calcium] 600 mg PO DAILY 04/07/21 06/29/21 History Carbidopa-Levodopa 25-100 mg 1 tab PO TID@0630,1200,1830 04/07/21 06/29/21 History [Sinemet 25-100 mg] Cholecalciferol [Vitamin D3 (25 100 mcg PO HS 04/07/21 06/29/21 History Mcg = 1000 Iu)] Isosorbide Mononitrate ER [Imdur] 30 mg PO DAILY 30 Days #30 04/07/21 06/29/21 Rx tab.er.24h Metoprolol Succinate (ER) [Toprol 50 mg PO DAILY@0630 04/07/21 06/29/21 History XL] amantadine HCL [Amantadine] 100 mg PO TID@0630,1200,1830 04/07/21 06/29/21 History Carbidopa/Levodopa [Parcopa 25-100 1 tab SL BID PRN 06/29/21 06/29/21 History mg Odt] Cbd Oil 75 mg PO BID 06/29/21 06/29/21 History Donepezil HCl [Aricept] 5 mg PO DAILY 06/29/21 06/29/21 History Super B Complex 1 tab PO DAILY 06/29/21 06/29/21 History Allergies Allergy/AdvReac Type Severity Reaction Status Date / Time No Known Allergies Allergy Verified 06/29/21 18:38 Physical Exam Vitals: Vital Signs Temp Pulse Pulse Resp BP BP Pulse Ox 06/30/21 08:00 98.7 F 56 L 18 132/60 94 L 06/30/21 04:00 97.8 F 55 L 17 198/149 95 06/30/21 02:00 56 L 17 06/30/21 01:48 97.8 F 56 L 17 158/61 95 06/30/21 00:00 97.9 F 53 L 18 140/79 96 06/29/21 23:03 52 L 18 141/98 94 L 06/29/21 21:33 200/83 06/29/21 21:30 48 L 18 94 L 06/29/21 18:35 97.9 F 48 L 19 160/69 100 Intake and Output 06/29/21 06/30/21 06/30/21 22:59 06:59 14:59 Intake Total 38.055 Balance 38.055 Intake: Intake, IV Titration 38.055 Amount Heparin Sod,Pork in 0.45% 38.055 NaCl 25,000 unit In 0.45 % NaCl 1 250ml.bag @ 12 UNITS/KG/HR 4.3 mls/hr IV .Q24H [facility] Rx#:[id number] Other: # Voids 1 Weight 35.834 kg 34.5 kg PHYSICAL EXAMINATION: GENERAL: The patient is alert and oriented x3, not in any acute distress. Well developed, well nourished. HEENT: Pupils are round and equally reacting to light. EOMI. No scleral icterus. No conjunctival pallor. Normocephalic, atraumatic. No pharyngeal erythema. No t hyromegaly. CARDIOVASCULAR: S1 and S2 present. No murmurs, rubs, or gallops. PULMONARY: Chest is clear to auscultation, no wheezing or crackles. ABDOMEN: Soft, nontender, nondistended, normoactive bowel sounds. No palpable organomegaly. MUSCULOSKELETAL: No joint swelling or deformity. EXTREMITIES: No cyanosis, clubbing, or pedal edema. NEUROLOGICAL: Gross neurological examination did not reveal any focal deficits. SKIN: No rashes. Results CBC & Chem 7: 06/30/21 00:43 06/29/21 21:26 Labs: Abnormal Lab Results - Last 24 Hours (Table) 06/29/21 06/29/21 06/29/21 Range/Units 21:26 21:26 21:26 RBC 3.33 L (3.80-5.40) m/uL Hgb 10.3 L (11.4-16.0) gm/dL Hct 30.7 L (34.0-46.0) % Lymphocytes # 0.7 L (1.0-4.8) k/uL APTT (22.0-30.0) sec BUN 25 H (7-17) mg/dL Creatinine 1.12 H (0.52-1.04) mg/dL Glucose 117 H (74-99) mg/dL Total Bilirubin 2.1 H (0.2-1.3) mg/dL Troponin I 0.080 H* (0.000-0.034) ng/mL HDL Cholesterol (40.00-60.00) mg/dL Urine Appearance (Clear) Urine Protein (Negative) Urine Blood (Negative) Ur Leukocyte Esterase (Negative) Urine RBC (0-5) /hpf Urine WBC (0-5) /hpf Urine WBC Clumps (None) /hpf Urine Bacteria (None) /hpf Hyaline Casts (0-2) /lpf Urine Mucus (None) /hpf 06/30/21 06/30/21 06/30/21 Range/Units 00:25 00:43 00:43 RBC 3.55 L (3.80-5.40) m/uL Hgb 10.6 L (11.4-16.0) gm/dL Hct 33.0 L (34.0-46.0) % Lymphocytes # 0.8 L (1.0-4.8) k/uL APTT (22.0-30.0) sec BUN (7-17) mg/dL Creatinine (0.52-1.04) mg/dL Glucose (74-99) mg/dL Total Bilirubin (0.2-1.3) mg/dL Troponin I 0.086 H* (0.000-0.034) ng/mL HDL Cholesterol (40.00-60.00) mg/dL Urine Appearance Cloudy H (Clear) Urine Protein 1+ H (Negative) Urine Blood Small H (Negative) Ur Leukocyte Esterase Large H (Negative) Urine RBC 33 H (0-5) /hpf Urine WBC 86 H (0-5) /hpf Urine WBC Clumps Rare H (None) /hpf Urine Bacteria Rare H (None) /hpf Hyaline Casts 15 H (0-2) /lpf Urine Mucus Rare H (None) /hpf 06/30/21 06/30/21 06/30/21 Range/Units 00:43 03:51 03:51 RBC (3.80-5.40) m/uL Hgb (11.4-16.0) gm/dL Hct (34.0-46.0) % Lymphocytes # (1.0-4.8) k/uL APTT 21.4 L (22.0-30.0) sec BUN (7-17) mg/dL Creatinine (0.52-1.04) mg/dL Glucose (74-99) mg/dL Total Bilirubin (0.2-1.3) mg/dL Troponin I 0.096 H* (0.000-0.034) ng/mL HDL Cholesterol 61.50 H (40.00-60.00) mg/dL Urine Appearance (Clear) Urine Protein (Negative) Urine Blood (Negative) Ur Leukocyte Esterase (Negative) Urine RBC (0-5) /hpf Urine WBC (0-5) /hpf Urine WBC Clumps (None) /hpf Urine Bacteria (None) /hpf Hyaline Casts (0-2) /lpf Urine Mucus (None) /hpf 06/30/21 Range/Units 06:58 RBC (3.80-5.40) m/uL Hgb (11.4-16.0) gm/dL Hct (34.0-46.0) % Lymphocytes # (1.0-4.8) k/uL APTT 37.5 H (22.0-30.0) sec BUN (7-17) mg/dL Creatinine (0.52-1.04) mg/dL Glucose (74-99) mg/dL Total Bilirubin (0.2-1.3) mg/dL Troponin I (0.000-0.034) ng/mL HDL Cholesterol (40.00-60.00) mg/dL Urine Appearance (Clear) Urine Protein (Negative) Urine Blood (Negative) Ur Leukocyte Esterase (Negative) Urine RBC (0-5) /hpf Urine WBC (0-5) /hpf Urine WBC Clumps (None) /hpf Urine Bacteria (None) /hpf Hyaline Casts (0-2) /lpf Urine Mucus (None) /hpf Assessment and Plan Assessment: 1. Elevated troponin rule out acute coronary syndrome - We will monitor and trend troponin and monitor EKG; start patient on aspirin, statins, beta donta; recommending 2-D echo; consult cardiology - Patient has been placed on IV heparin pending cardiology's recommendations 2. Acute renal injury/dehydration; slow IV fluid hydration; patient received 1 L in ED; monitor strict JOVANI's, daily weights, renal function and electrolytes; avoid nephrotoxins 3. Elevated bilirubin; we will repeat and trend LFTs with plans to do further workup if abnormal 4. Generalized weakness/debility; possibly multifactorial related to POP versus ACS 5. Hypertension; metoprolol 50 mg daily along with Zestril 20 mg twice a day; we will hold Zestril if renal function continues to deteriorate 6. Hyperlipidemia; Lipitor 40 mg by mouth daily at bedtime 7. Parkinson's disease; continue with home dose of Sinemet; amantadine 100 mg 3 times a day 8. Dementia; stable on home dose of Aricept DVT prophylaxis; SCDs CODE STATUS; full code
[2021-06-30] MEDS: CHOLECALCIFEROL 25 MCG (1000 IU) TABLET PO SCH (21:24)
[2021-06-30] MEDS: ATORVASTATIN 40 MG TAB PO SCH (21:24)
[2021-07-01] MEDS: CARBIDOPA-LEVODOPA 25-100 MG 1 EACH TAB PO SCH ×3 (06:54→18:18)
[2021-07-01] MEDS: METOPROLOL SUCCINATE (ER) 50 MG TAB.ER.24H PO SCH (06:55)
[2021-07-01] MEDS: HEPARIN SOD,PORK IN 0.45% NACL 25,000 UNIT in 0.45% NACL 1 250ML.BAG IV SCH (08:25)
[2021-07-01 08:42] LABS: Basophils % (A) 0 %; Eosinophils # (A) 0.1 k/uL (0-0.7); Eosinophils % (A) 1 %; HCT 33.6 % (34.0-46.0); HGB 10.5 gm/dL (11.4-16.0); Lymphocytes # (A) 0.7 k/uL (1.0-4.8); Lymphocytes % (A) 8 %; MCH 29.4 pg (25.0-35.0); MCHC 31.1 g/dL (31.0-37.0); MCV 94.4 fL (80.0-100.0); Mean Platelet Volume 8.6; Monocytes # (A) 0.5 k/uL (0-1.0); Monocytes % (A) 5 %; Neutrophils # (A) 8.2 k/uL (1.3-7.7); Neutrophils % (A) 85 %; Platelet Count 250 k/uL (150-450); RBC 3.56 m/uL (3.80-5.40); RDW 15.2 % (11.5-15.5); WBC 9.6 k/uL (3.8-10.6)
[2021-07-01 08:53] LABS: Calcium 9.3 mg/dL (8.4-10.2); Potassium 4.5 mmol/L (3.5-5.1)
[2021-07-01] MEDS: DONEPEZIL 5 MG TAB PO SCH (08:57)
[2021-07-01] MEDS: ASPIRIN 81 MG PO SCH (08:57)
[2021-07-01] MEDS: CALCIUM CARBONATE 500 MG CHEWABLE PO SCH (08:57)
[2021-07-01] MEDS: amLODIPine 10 MG TAB PO SCH (08:57)
[2021-07-01] MEDS: CLOPIDOGREL 75 MG TAB PO SCH (08:57)
[2021-07-01] MEDS: lisinopriL 20 MG TAB PO SCH ×2 (08:57→20:24)
[2021-07-01] MEDS: ISOSORBIDE MONONITRATE ER 30 MG TAB.ER.24H PO SCH (08:57)
[2021-07-01 09:00] LABS: INR 1.1 (<1.2); Partial Thromboplastin Time 32.6 sec (22.0-30.0); Prothrombin Time 11.3 sec (9.0-12.0)
--- NOTE | 2021-07-01 09:34 | P.PN ---
Subjective Progress Note Date: 07/01/21 HISTORY OF PRESENT ILLNESS: This is a 76 year old female with a past medical history significant for hypertension, hyperlipidemia, and Parkinson's disease. 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 We have been asked to see the patient in consultation for abnormal troponins. Patient examined at the bedside. patient was brought to the hospital by her who apparently noticed that the patient has been more weak than normal and has been having hallucinations at home. The patient also fell out of bed yesterday according to ER documentation. The patient currently denies chest pain or pressure. She denies shortness of breath. She denies dizziness or lightheadedness. EKG reveals sinus mechanism with T-wave inversions in anterior lateral leads, seen on previous EKG Chest xray chronic changes without acute cardiac pulmonary process. Nodular opacities left lateral lung base similar to prior. Laboratory data: WBC 8.5. Hemoglobin 10.6. Platelet count 249. Sodium 141. Potassium 4.3. BUN 25. Creatinine 1.12. troponin 0.080. 0.086. 0.096. Current home cardiac medications include Imdur 30 mg daily, lisinopril 20 mg daily, metoprolol succinate 50mg daily, Lipitor 40 mg at night echocardiogram obtained revealed ejection fraction 60-65%, mild mitral regurgitation, mild tricuspid regurgitation, severe pulmonary hypertension 07/01/2021 Patient examined this morning at the bedside. Patient denies chest pain or pressure. She denies shortness of breath. Patient's blood pressure remains elevated this morning with a reading of 179/72. PHYSICAL EXAM: VITAL SIGNS: Reviewed. GENERAL: Well-developed in no acute distress. HEENT: Head is normocephalic. abrasion noted to left eye and nose.Pupils are equal, round. Sclerae anicteric. Mucous membranes of the mouth are moist. Neck supple. No JVD or thyromegaly LUNGS: Respirations even and unlabored. Lungs essentially clear to auscultation bilaterally. HEART: Regular rate and rhythm. S1 and S2 heard. ABDOMEN: Soft. Nondistended. Nontender. EXTREMITIES: Normal range of motion. No clubbing or cyanosis. Peripheral pulses intact. No lower extremity edema NEUROLOGIC: Awake and alert. Oriented x 3. ASSESSMENT: Generalized weakness and hallucinations, per Status post fall Non-STEMI Hypertension Hyperlipidemia Parkinson's disease PLAN: Continue current cardiac medications Add Norvasc 10 mg daily for optimal blood pressure control Continue with conservative management at this time Further recommendations pending patient's course Nurse practitioner note has been reviewed by physician. Signing provider agrees with the documented findings, assessment, and plan of care. Objective - Vital Signs Vital signs: Vital Signs Temp 98.7 F 07/01/21 04:00 Pulse 53 L 07/01/21 04:00 Resp 20 07/01/21 04:00 BP 179/72 07/01/21 04:00 Pulse Ox 93 L 07/01/21 04:00 Intake & Output 06/30/21 07/01/21 07/01/21 18:59 06:59 18:59 Intake Total 158.055 360 Balance 158.055 360 Weight 34.5 kg 36.5 kg Intake: Intake, IV Titration 38.055 Amount Heparin Sod,Pork in 0.45% 38.055 NaCl 25,000 unit In 0.45 % NaCl 1 250ml.bag @ 12 UNITS/KG/HR 4.3 mls/hr IV [facility] Rx#:[id number] Oral 120 360 Other: # Voids 1 1 # Bowel Movements 0 - Labs CBC & Chem 7: 07/01/21 08:09 07/01/21 08:09 Labs: Abnormal Lab Results - Last 24 Hours (Table) 06/30/21 06/30/21 07/01/21 Range/Units 03:51 16:17 08:09 RBC (3.80-5.40) m/uL Hgb (11.4-16.0) gm/dL Hct (34.0-46.0) % Neutrophils # (1.3-7.7) k/uL Lymphocytes # (1.0-4.8) k/uL APTT 44.9 H 32.6 H (22.0-30.0) sec Chloride (98-107) mmol/L Carbon Dioxide (22-30) mmol/L BUN (7-17) mg/dL Glucose (74-99) mg/dL HDL Cholesterol 61.50 H (40.00-60.00) mg/dL 07/01/21 07/01/21 Range/Units 08:09 08:09 RBC 3.56 L (3.80-5.40) m/uL Hgb 10.5 L (11.4-16.0) gm/dL Hct 33.6 L (34.0-46.0) % Neutrophils # 8.2 H (1.3-7.7) k/uL Lymphocytes # 0.7 L (1.0-4.8) k/uL APTT (22.0-30.0) sec Chloride 111 H (98-107) mmol/L Carbon Dioxide 19 L (22-30) mmol/L BUN 32 H (7-17) mg/dL Glucose 131 H (74-99) mg/dL HDL Cholesterol (40.00-60.00) mg/dL Microbiology - Last 24 Hours (Table) 06/30/21 00:25 Urine Culture - Preliminary Urine,Catheterized
--- NOTE | 2021-07-01 18:46 | P.PN ---
Subjective Progress Note Date: 07/01/21 76-year-old female, history of hypertension, hyperlipidemia, Parkinson's disease and dementia; presents to the emergency room with her . Her states that she has been increasingly weak and hallucinating for the past 5 days. She fell out of bed yesterday and sustained an abrasion and bruise to the left side of her face. He states that her Parkinson's is getting worse and he is unable to care for her at home. He did call Dr. Sumner and they told her to come to the emergency room for evaluation. Denies any fevers, nausea vomiting or diarrhea. He states that her urine is dark in color and she has had poor oral intake. EKG shows sinus bradycardia with a ventricular rate of 52. The troponin is positive at 0.080. CT the brain and C-spine shows mild degenerative disc changes with on cervical spine. There is chronic. Ventricular white matter ischemic changes with age related atrophy. There is no evidence of infarcts, mass or intracranial hemorrhage. Chest x-ray shows no acute cardiopulmonary process. There is a nodular opacity in the left lateral base summary to prior exam dated 04/07/2021. Patient will be admitted to the hospital to trend her troponin and evaluation for generalized weakness. Objective - Vital Signs Vital signs: Vital Signs Temp 98.7 F 07/01/21 04:00 Pulse 53 L 07/01/21 04:00 Resp 20 07/01/21 04:00 BP 179/72 07/01/21 04:00 Pulse Ox 93 L 07/01/21 04:00 Intake & Output 06/30/21 07/01/21 07/01/21 18:59 06:59 18:59 Intake Total 158.055 360 Balance 158.055 360 Weight 34.5 kg 36.5 kg Intake: Intake, IV Titration 38.055 Amount Heparin Sod,Pork in 0.45% 38.055 NaCl 25,000 unit In 0.45 % NaCl 1 250ml.bag @ 12 UNITS/KG/HR 4.3 mls/hr IV .Q24H [facility] Rx#:[id number] Oral 120 360 Other: # Voids 1 1 # Bowel Movements 0 - Exam - Constitutional General appearance: Present: average body habitus, cooperative, no acute distress - EENT Eyes: Present: anicteric sclerae, EOMI, PERRLA, normal appearance ENT: Present: hearing grossly normal, normal oropharynx Ears: bilateral: normal - Neck Neck: Present: normal ROM. Absent: lymphadenopathy, rigidity, thyromegaly Carotids: negative: bruit present Thyroid: bilateral: normal size, negative: enlarged, nodule - Respiratory Respiratory: bilateral: CTA, negative: rales, rhonchi, wheezing - Cardiovascular Rhythm: regular Heart sounds: normal: S1, S2 Abnormal Heart Sounds: Absent: systolic murmur, diastolic murmur - Gastrointestinal General gastrointestinal: Present: normal bowel sounds, soft. Absent: distended, organomegaly, tenderness - Genitourinary Genitourinary Comment(s): deferred - Integumentary Integumentary: Present: normal turgor. Absent: jaundiced, rash, ulcer - Neurologic Neurologic: Present: CNII-XII intact. Absent: focal deficits - Musculoskeletal Musculoskeletal: Present: gait normal, strength equal bilaterally - Psychiatric Psychiatric: Present: A&O x's 3, appropriate affect, intact judgment & insight - Labs CBC & Chem 7: 07/01/21 08:09 07/01/21 08:09 Labs: Abnormal Lab Results - Last 24 Hours (Table) 06/30/21 06/30/21 07/01/21 Range/Units 03:51 16:17 08:09 RBC (3.80-5.40) m/uL Hgb (11.4-16.0) gm/dL Hct (34.0-46.0) % Neutrophils # (1.3-7.7) k/uL Lymphocytes # (1.0-4.8) k/uL APTT 44.9 H 32.6 H (22.0-30.0) sec Chloride (98-107) mmol/L Carbon Dioxide (22-30) mmol/L BUN (7-17) mg/dL Glucose (74-99) mg/dL HDL Cholesterol 61.50 H (40.00-60.00) mg/dL 07/01/21 07/01/21 Range/Units 08:09 08:09 RBC 3.56 L (3.80-5.40) m/uL Hgb 10.5 L (11.4-16.0) gm/dL Hct 33.6 L (34.0-46.0) % Neutrophils # 8.2 H (1.3-7.7) k/uL Lymphocytes # 0.7 L (1.0-4.8) k/uL APTT (22.0-30.0) sec Chloride 111 H (98-107) mmol/L Carbon Dioxide 19 L (22-30) mmol/L BUN 32 H (7-17) mg/dL Glucose 131 H (74-99) mg/dL HDL Cholesterol (40.00-60.00) mg/dL Microbiology - Last 24 Hours (Table) 06/30/21 00:25 Urine Culture - Preliminary Urine,Catheterized Assessment and Plan Assessment: 1. Elevated troponin rule out acute coronary syndrome - We will monitor and trend troponin and monitor EKG; start patient on aspirin, statins, beta donta; recommending 2-D echo; consult cardiology - Patient has been placed on IV heparin pending cardiology's recommendations 2. Acute renal injury/dehydration; slow IV fluid hydration; patient received 1 L in ED; monitor strict JOVANI's, daily weights, renal function and electrolytes; avoid nephrotoxins 3. Elevated bilirubin; we will repeat and trend LFTs with plans to do further workup if abnormal 4. Generalized weakness/debility; possibly multifactorial related to POP versus ACS 5. Hypertension; metoprolol 50 mg daily along with Zestril 20 mg twice a day; we will hold Zestril if renal function continues to deteriorate 6. Hyperlipidemia; Lipitor 40 mg by mouth daily at bedtime 7. Parkinson's disease; continue with home dose of Sinemet; amantadine 100 mg 3 times a day 8. Dementia; stable on home dose of Aricept DVT prophylaxis; SCDs CODE STATUS; full code
[2021-07-01] MEDS: CHOLECALCIFEROL 25 MCG (1000 IU) TABLET PO SCH (20:24)
[2021-07-01] MEDS: ATORVASTATIN 40 MG TAB PO SCH (20:24)
[2021-07-02] MEDS: CARBIDOPA-LEVODOPA 25-100 MG 1 EACH TAB PO SCH (06:18)
[2021-07-02] MEDS: METOPROLOL SUCCINATE (ER) 50 MG TAB.ER.24H PO SCH (06:24)
[2021-07-02] MEDS: ISOSORBIDE MONONITRATE ER 30 MG TAB.ER.24H PO SCH (08:43)
[2021-07-02] MEDS: lisinopriL 20 MG TAB PO SCH (08:43)
[2021-07-02] MEDS: CALCIUM CARBONATE 500 MG CHEWABLE PO SCH (08:43)
[2021-07-02] MEDS: ASPIRIN 81 MG PO SCH (08:43)
[2021-07-02] MEDS: amLODIPine 10 MG TAB PO SCH (08:43)
[2021-07-02] MEDS: CLOPIDOGREL 75 MG TAB PO SCH (08:43)
[2021-07-02] MEDS: DONEPEZIL 5 MG TAB PO SCH (08:44)
[2021-07-02] MEDS ORDERED: NON FORMULARY DRUG (Super B Complex 1 TAB) PO SCH (09:00)
--- NOTE | 2021-07-02 10:04 | P.PN ---
Subjective Progress Note Date: 07/02/21 HISTORY OF PRESENT ILLNESS: This is a 76 year old female with a past medical history significant for hypertension, hyperlipidemia, and Parkinson's disease. 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 We have been asked to see the patient in consultation for abnormal troponins. Patient examined at the bedside. patient was brought to the hospital by her who apparently noticed that the patient has been more weak than normal and has been having hallucinations at home. The patient also fell out of bed yesterday according to ER documentation. The patient currently denies chest pain or pressure. She denies shortness of breath. She denies dizziness or lightheadedness. EKG reveals sinus mechanism with T-wave inversions in anterior lateral leads, seen on previous EKG Chest xray chronic changes without acute cardiac pulmonary process. Nodular opacities left lateral lung base similar to prior. Laboratory data: WBC 8.5. Hemoglobin 10.6. Platelet count 249. Sodium 141. Potassium 4.3. BUN 25. Creatinine 1.12. troponin 0.080. 0.086. 0.096. Current home cardiac medications include Imdur 30 mg daily, lisinopril 20 mg daily, metoprolol succinate 50mg daily, Lipitor 40 mg at night echocardiogram obtained revealed ejection fraction 60-65%, mild mitral regurgitation, mild tricuspid regurgitation, severe pulmonary hypertension 07/01/2021 Patient examined this morning at the bedside. Patient denies chest pain or pressure. She denies shortness of breath. Patient's blood pressure remains elevated this morning with a reading of 179/72. 07/02/2021 Patient examined this morning at the bedside. Patient denies chest pain or pressure. She denies shortness of breath. Patient's blood pressure has improved with a systolic in the 140s. PHYSICAL EXAM: VITAL SIGNS: Reviewed. GENERAL: Well-developed in no acute distress. HEENT: Head is normocephalic. abrasion noted to left eye and nose.Pupils are equal, round. Sclerae anicteric. Mucous membranes of the mouth are moist. Neck supple. No JVD or thyromegaly LUNGS: Respirations even and unlabored. Lungs essentially clear to auscultation bilaterally. HEART: Regular rate and rhythm. S1 and S2 heard. ABDOMEN: Soft. Nondistended. Nontender. EXTREMITIES: Normal range of motion. No clubbing or cyanosis. Peripheral pulses intact. No lower extremity edema NEUROLOGIC: Awake and alert. Oriented x 3. ASSESSMENT: Generalized weakness and hallucinations, per Status post fall Non-STEMI Hypertension Hyperlipidemia Parkinson's disease PLAN: Continue current cardiac medications Continue with conservative management at this time Consult neurology for evaluation per Dr. Mackey Further recommendations pending patient's course Nurse practitioner note has been reviewed by physician. Signing provider agrees with the documented findings, assessment, and plan of care. Objective - Vital Signs Vital signs: Vital Signs Temp 98.1 F 07/02/21 08:41 Pulse 48 L 07/02/21 08:41 Resp 18 07/02/21 08:41 BP 144/85 07/02/21 08:41 Pulse Ox 99 07/02/21 08:41 Intake & Output 07/01/21 07/02/21 07/02/21 18:59 06:59 18:59 Intake Total 780 Balance 780 Weight 36 kg Intake: Oral 780 Other: # Voids 1 # Bowel Movements 0 - Labs CBC & Chem 7: 07/01/21 08:09 07/01/21 08:09 Labs: Microbiology - Last 24 Hours (Table) 06/30/21 00:25 Urine Culture - Preliminary Urine,Catheterized Gram Neg Bacilli
--- NOTE | 2021-07-02 11:05 | P.CNNES ---
History of Present Illness Consult date: 07/02/21 Requesting physician: Joan Juarez Reason for Consult: Parkinson's disease History of Present Illness: This is a 76-year-old woman with medical history of Parkinson's disease (for past 8 years), hypertension, hyperlipidemia who presented emergency department on 06/29/2021 for generalized weakness and hallucinating over the last 5 days. Neurology is consulted by cardiology because of the patient's Parkinson's diseas e. History is obtained from patient's (Germain) who is at bedside. Per the patient he stated that the patient has been having generalized weakness and then been having visual hallucination for the last couple weeks. Patient stated that she seeing objects and people that are not there. Patient stated that at has resolved during this hospital stay. She denies of any focal weakness, numbness or any new neurological deficits. She follows up with Dr. Matthews for her neurological care. She was diagnosed by her neurologist with Parkinson's disease and she stated that she had the resting tremor of the right per extremity and now involves the entire body. Patient is on sentiment and amantadine. Per the patient she has come an appointment her neurologist in the next week. Patient stated that he takes care of her at home and he is to arrange home care. He stated that the patient is nonambulatory and needs assistance. She denies that the patient has any dementia. The patient on medication consist of sentiment 25-100 one tablet three times a day (at 6:1829) so sentiment 25/100 one tablet twice a day when necessary, Aricept 5 mg daily, amantadine 100 mg 1 tablet 3 times a day (:1829), vitamin D3 at thousand units daily at bedtime, calcium, Lexapro, metoprolol, Cbd oil, Imdur. Some other workup in hospital consisted of: Initial vital signs his blood pressure of 160/69, heart rate of 48, respiratory of 19, temperature of 97.9 Fahrenheit oral and pulse ox of 1% room air. Hospital stay the patient's blood pressure got as high as 200/83 and recently it's been in the range of 140s over 70s to 90s. CT of the head is reported as chronic periventricular white matter ischemic change with age-related atrophy. While ST is cervical was reported as mild degenerative disc change within the cervical spine. Hemoglobin is 10.3. White blood cell is 8.3. Sodium is 141, creatinine is 1.12 the repeat his 0.94, calcium is 9.3, AST of 26 ALT of 6, troponin is 0.08 and a got as high as 0.096. Lipid panel 75, cholesterol is 104, LDLs 27 and HDL of Lena 1. Urinalysis seems suggestive of urinary tract infection. Tracy virus PCR was not detected. Review of Systems Review of system: The 12 point system was reviewed and apparent positive and negative per HPI. Past Medical History Past Medical History: Hypertension Additional Past Medical History / Comment(s): Parkinson's disease History of Any Multi-Drug Resistant Organisms: None Reported Past Surgical History: Hysterectomy Past Psychological History: No Psychological Hx Reported Smoking Status: Former smoker Past Alcohol Use History: None Reported Past Drug Use History: None Reported Medications and Allergies Home Medications Medication Instructions Recorded Confirmed Type lisinopriL [Zestril] 20 mg PO DAILY@0630 03/30/14 06/29/21 History Atorvastatin [Lipitor] 40 mg PO HS 04/07/21 06/29/21 History Calcium Carbonate [Calcium] 600 mg PO DAILY 04/07/21 06/29/21 History Carbidopa-Levodopa 25-100 mg 1 tab PO TID@0630,1200,1830 04/07/21 06/29/21 History [Sinemet 25-100 mg] Cholecalciferol [Vitamin D3 (25 100 mcg PO HS 04/07/21 06/29/21 History Mcg = 1000 Iu)] Isosorbide Mononitrate ER [Imdur] 30 mg PO DAILY 30 Days #30 04/07/21 06/29/21 Rx tab.er.24h Metoprolol Succinate (ER) [Toprol 50 mg PO DAILY@0630 04/07/21 06/29/21 History XL] amantadine HCL [Amantadine] 100 mg PO TID@0630,1200,1830 04/07/21 06/29/21 History Carbidopa/Levodopa [Parcopa 25-100 1 tab SL BID PRN 06/29/21 06/29/21 History mg Odt] Cbd Oil 75 mg PO BID 06/29/21 06/29/21 History Donepezil HCl [Aricept] 5 mg PO DAILY 06/29/21 06/29/21 History Super B Complex 1 tab PO DAILY 06/29/21 06/29/21 History Aspirin 81 mg PO DAILY tab 07/02/21 Rx Clopidogrel [Plavix] 75 mg PO DAILY #30 tab 07/02/21 Rx amLODIPine [Norvasc] 10 mg PO DAILY #30 tab 07/02/21 Rx Allergies Allergy/AdvReac Type Severity Reaction Status Date / Time No Known Allergies Allergy Verified 06/29/21 18:38 Physical Examination - Vital Signs Vital Signs: Vital Signs Temp Pulse Resp BP Pulse Ox 07/02/21 08:41 98.1 F 48 L 18 144/85 99 07/02/21 03:45 98.6 F 52 L 16 178/80 93 L 07/01/21 22:50 98.7 F 47 L 17 157/68 93 L 07/01/21 20:20 98.3 F 55 L 19 108/53 95 07/01/21 16:06 97.8 F 46 L 18 156/62 96 07/01/21 12:40 98.3 F 58 L 18 168/72 95 Intake and Output 07/01/21 07/02/21 07/02/21 22:59 06:59 14:59 Intake Total 240 Balance 240 Intake: Oral 240 Other: # Voids 1 1 Weight 36 kg GENERAL: The patient is lying in bed, is cachectic and is not in acute distress. CHEST: The heart rate is regular rate rhythm. No murmurs to auscultation. . LUNG: Clear to auscultation bilaterally no wheezing noted throughout. Not labored breathing. ABDOMEN/GI: Bowel sounds present in all 4 quadrants. No tenderness to palpation throughout. NEUROLOGICAL: Higher mental function: The patient is awake, alert, oriented to self, place and time (her answers are somewhat slow to respond). Patient is following simple commands. No aphasia and no neglect. Cranial nerves: The pupils are round, equal and reactive to light. Visual barraza are full to confrontation throughout. Extraocular movement is intact no nystagmus is noted. Facial sensation is normal to touch throughout. The facial strength is normal throughout. Hearing is moderately to severely decreased bilaterally to hand rub. Tongue is midline and moved [id number] without any difficulty. No dysarthria is noted. Motor: Gait is deferred because of her condition. The strength is moving all extremities above gravity. The left upper elbow extension in 4+ to 5- (had old injury to past ), otherwise no focality. Decrease bulk throughout. Has generalized body resting tremor throughout. Cerebellum: Normal finger to nose bilaterally, but at end and with finger to nose felt there is intention tremor. Sensation: Sensation is normal to touch throughout. Reflexes (right/left):1+ throughout uppers while lowers are 0-1. Plantars are mute bilaterally. Results - Laboratory Findings CBC and BMP: 07/01/21 08:09 07/01/21 08:09 Abnormal Lab Findings: Abnormal Labs 06/29/21 06/29/21 06/29/21 21:26 21:26 21:26 RBC 3.33 L Hgb 10.3 L Hct 30.7 L Neutrophils # Lymphocytes # 0.7 L APTT Chloride Carbon Dioxide BUN 25 H Creatinine 1.12 H Glucose 117 H Total Bilirubin 2.1 H Troponin I 0.080 H* HDL Cholesterol Urine Appearance Urine Protein Urine Blood Ur Leukocyte Esterase Urine RBC Urine WBC Urine WBC Clumps Urine Bacteria Hyaline Casts Urine Mucus 06/30/21 06/30/21 06/30/21 00:25 00:43 00:43 RBC 3.55 L Hgb 10.6 L Hct 33.0 L Neutrophils # Lymphocytes # 0.8 L APTT Chloride Carbon Dioxide BUN Creatinine Glucose Total Bilirubin Troponin I 0.086 H* HDL Cholesterol Urine Appearance Cloudy H Urine Protein 1+ H Urine Blood Small H Ur Leukocyte Esterase Large H Urine RBC 33 H Urine WBC 86 H Urine WBC Clumps Rare H Urine Bacteria Rare H Hyaline Casts 15 H Urine Mucus Rare H 06/30/21 06/30/21 06/30/21 00:43 03:51 03:51 RBC Hgb Hct Neutrophils # Lymphocytes # APTT 21.4 L Chloride Carbon Dioxide BUN Creatinine Glucose Total Bilirubin Troponin I 0.096 H* HDL Cholesterol 61.50 H Urine Appearance Urine Protein Urine Blood Ur Leukocyte Esterase Urine RBC Urine WBC Urine WBC Clumps Urine Bacteria Hyaline Casts Urine Mucus 06/30/21 06/30/21 07/01/21 06:58 16:17 08:09 RBC Hgb Hct Neutrophils # Lymphocytes # APTT 37.5 H 44.9 H 32.6 H Chloride Carbon Dioxide BUN Creatinine Glucose Total Bilirubin Troponin I HDL Cholesterol Urine Appearance Urine Protein Urine Blood Ur Leukocyte Esterase Urine RBC Urine WBC Urine WBC Clumps Urine Bacteria Hyaline Casts Urine Mucus 07/01/21 07/01/21 08:09 08:09 RBC 3.56 L Hgb 10.5 L Hct 33.6 L Neutrophils # 8.2 H Lymphocytes # 0.7 L APTT Chloride 111 H Carbon Dioxide 19 L BUN 32 H Creatinine Glucose 131 H Total Bilirubin Troponin I HDL Cholesterol Urine Appearance Urine Protein Urine Blood Ur Leukocyte Esterase Urine RBC Urine WBC Urine WBC Clumps Urine Bacteria Hyaline Casts Urine Mucus Assessment and Plan Assessment: 1. Generalized weakness and hallucination can be due to Parkinson disease and possibly exacerbated by her possible underlying UTI. 2. Altered mental status due to underlying acute UTI and component of metabolic encephalopathy--per resolved. 3. Delerium due to #2 4. Advance chronic Parkinson's disease (had it for 8 years) 5. Acute kidney injury--resolved 6. Possible Acute urinary tract infection 7. Non-STEMI 8. Hypertension and during this hospital stay her blood pressure is slightly elevated 9. Hyperlipidemia Plan: * I'll change the patient Sinemet from one tablet 3 times a day to 1 tablet 4 times a day (6:30, 11, 1400, 1900). I will change Amatadine 100mg from 1 tab tid to bid and last dose at 1pm (avoid any amadine after 2pm since is neurostimulant and make patient stay awake). * Consider Nuplazid (Pimavanserin) if patient continues to have hallucination and delusion associated with psychiosis that can be related to Parkinson's disease. * Patient last vitamin B12 is 993 on 06/07/2021 and the serum folate is more than 24 on the same day. Therefore I will not repeat the dose labs. * Recommend TSH level. Possibly consider EMG with nerve conduction study as an outpatient to rule out any other underlying process (and will defer that to her neurologist as outpatient). * PT and OT are consulted * Cardiology team is on board * We'll defer the rest of the medical management to the primary team * Upon discharge recommend the patient to follow-up with her neurologist (Dr. Matthews) within 1-2 weeks. * I feel the patient would benefit from rehab. I spoke with the patient's who is at bedside and he stated that he feels the patient is doing much better and he would like to take her home. I notified them to consider long-term facility to help with her care but he stated he will have a visiting nurse/aid to come to their house and help out. Thank you for the consultation. Dharmesh Glover M.D. Neuro-Hospitalist Time with Patient: Greater than 30
[2021-07-02 11:32] VITALS: BP 138/59; PULSE 49; RESP 16; TEMP 97.8
[2021-07-02] MEDS ORDERED: CARBIDOPA-LEVODOPA 25-100 MG 1 EACH TAB PO SCH (14:00)
== END 2021-07-02 11:50 | disposition home health service (06) | DRG 280 ==
LOC: EC 16:52 → 3SCARD 22:38 → OBSVTOIN 06-30 13:20
PROVIDERS: ADMIT Internal Medicine; ATTEND Internal Medicine
DX: I21.4 Non-ST elevation (NSTEMI) myocardial infarction (principal); G93.41 Metabolic encephalopathy; R44.3 Hallucinations, unspecified; N17.9 Acute kidney failure, unspecified; N39.0 Urinary tract infection, site not specified; R17 Unspecified jaundice; R53.1 Weakness; W19.XXXA Unspecified fall, initial encounter; Z20.822 Contact with and (suspected) exposure to COVID-19; E78.5 Hyperlipidemia, unspecified; S00.81XA Abrasion of other part of head, initial encounter; I10 Essential (primary) hypertension; I08.1 Rheumatic disorders of both mitral and tricuspid valves; M50.30 Other cervical disc degeneration, unspecified cervical region; S00.212A Abrasion of left eyelid and periocular area, initial encounter; S00.31XA Abrasion of nose, initial encounter; F02.80 Dementia in other diseases classified elsewhere, unspecified severity, without behavioral disturbance, psychotic disturbance, mood disturbance, and anxiety; K59.09 Other constipation; G20 Parkinson's disease; I27.20 Pulmonary hypertension, unspecified; W06.XXXA Fall from bed, initial encounter; Z79.899 Other long term (current) drug therapy; E86.0 Dehydration; Z79.02 Long term (current) use of antithrombotics/antiplatelets; Z79.82 Long term (current) use of aspirin; Z87.891 Personal history of nicotine dependence; Z90.710 Acquired absence of both cervix and uterus
CPT/HCPCS: 36415; 70450; 71045; 72125; 80048; 80053; 80061; 81001; 84484; 85025; 85610; 85730; 87077; 87086; 87186; 87635; 93005; 93306; 96361; 96374; 99285

== ENCOUNTER 2021-07-06 09:01 | Inpatient (IN) | payer MEDICARE ==
--- NOTE | 2021-07-06 09:19 | ED ---
General Adult HPI - General Chief complaint: Shortness of Breath Stated complaint: АННА Time Seen by Provider: 07/06/21 09:05 Source: patient, EMS, RN notes reviewed, old records reviewed Mode of arrival: EMS Limitations: no limitations - History of Present Illness Initial comments: Patient is a pleasant 76-year-old female presenting to the emergency department with concerns for dyspnea. Patient is a poor historian. Patient does have history of Parkinson's with recent evaluation for this and medication changes. Patient states she feels fine and has no complaints. Patient arrives via EMS. - Related Data Home Medications Medication Instructions Recorded Confirmed lisinopriL [Zestril] 20 mg PO DAILY@0630 03/30/14 06/29/21 Atorvastatin [Lipitor] 40 mg PO HS 04/07/21 06/29/21 Calcium Carbonate [Calcium] 600 mg PO DAILY 04/07/21 06/29/21 Carbidopa-Levodopa 25-100 mg 1 tab PO TID@0630,1200,1830 04/07/21 06/29/21 [Sinemet 25-100 mg] Cholecalciferol [Vitamin D3 (25 100 mcg PO HS 04/07/21 06/29/21 Mcg = 1000 Iu)] Metoprolol Succinate (ER) [Toprol 50 mg PO DAILY@0630 04/07/21 06/29/21 XL] amantadine HCL [Amantadine] 100 mg PO TID@0630,1200,1830 04/07/21 06/29/21 Carbidopa/Levodopa [Parcopa 25-100 1 tab SL BID PRN 06/29/21 06/29/21 mg Odt] Cbd Oil 75 mg PO BID 06/29/21 06/29/21 Donepezil HCl [Aricept] 5 mg PO DAILY 06/29/21 06/29/21 Super B Complex 1 tab PO DAILY 06/29/21 06/29/21 Previous Rx's Medication Instructions Recorded Isosorbide Mononitrate ER [Imdur] 30 mg PO DAILY 30 Days #30 04/07/21 tab.er.24h Aspirin 81 mg PO DAILY tab 07/02/21 Clopidogrel [Plavix] 75 mg PO DAILY #30 tab 07/02/21 amLODIPine [Norvasc] 10 mg PO DAILY #30 tab 07/02/21 Allergies Allergy/AdvReac Type Severity Reaction Status Date / Time No Known Allergies Allergy Verified 07/06/21 09:11 Review of Systems ROS Statement: Those systems with pertinent positive or pertinent negative responses have been documented in the HPI. ROS Other: All systems not noted in ROS Statement are negative. Constitutional: Denies: fever Eyes: Denies: eye pain ENT: Denies: ear pain Respiratory: Reports: as per HPI Cardiovascular: Denies: chest pain Endocrine: Denies: fatigue Gastrointestinal: Denies: abdominal pain Genitourinary: Denies: dysuria Musculoskeletal: Denies: back pain Skin: Denies: rash Neurological: Denies: weakness Past Medical History Past Medical History: Hypertension Additional Past Medical History / Comment(s): Parkinson's disease History of Any Multi-Drug Resistant Organisms: None Reported Past Surgical History: Hysterectomy Past Psychological History: No Psychological Hx Reported Smoking Status: Former smoker Past Alcohol Use History: None Reported Past Drug Use History: None Reported General Exam Limitations: no limitations General appearance: alert Head exam: Present: atraumatic, normocephalic Eye exam: Present: normal appearance, PERRL ENT exam: Present: normal oropharynx Neck exam: Present: normal inspection Respiratory exam: Present: decreased breath sounds (Right base) Cardiovascular Exam: Present: bradycardia Expanded Peripheral pulses: 2+: Radial (R), Radial (L), Dorsalis Pedis (R), Dorsalis Pedis (L) GI/Abdominal exam: Present: soft. Absent: tenderness Extremities exam: Present: normal inspection. Absent: pedal edema, calf tenderness Neurological exam: Present: alert Psychiatric exam: Present: flat affect Skin exam: Present: normal color Course Vital Signs 07/06/21 07/06/21 07/06/21 09:03 09:48 09:51 Pulse Rate 32 L 26 L 78 Respiratory 28 H 32 H 30 H Rate Blood Pressure 117/97 67/24 105/55 O2 Sat by Pulse 100 78 L 92 L Oximetry 07/06/21 07/06/21 07/06/21 10:00 10:16 10:41 Pulse Rate 62 58 L 40 L Respiratory 30 H 30 H 30 H Rate Blood Pressure 99/56 48/32 81/50 O2 Sat by Pulse 90 L 99 Oximetry - Reevaluation(s) Reevaluation #1: 07/06/21 09:53 Case was discussed with cardiology Dr. Prabhakar who will consult. He agrees with atropine that was just given as well as dopamine. Heart rate had dropped to 26 and increased to 76 following this. Dopamine drip will also be started. 07/06/21 10:10 Case was also discussed with Dr. Prabhakar, who will admit covering Dr. Sumner. He would also agree with consult with Dr. Mayo. 07/06/21 10:11 Repeat EKG shows A. fib with slow reticular response, rate 57. QRS 86. QT 234. QTC 227. Right axis. Normal QRS. Nonspecific ST-T. 07/06/21 10:16 Discussion with regarding CODE STATUS. He states patient does not want CPR or life support. Patient will remain no code. 07/06/21 10:23 Case was also discussed with Dr. Mayo, who will consult. 07/06/21 10:53 Patient again reevaluated. Patient family updated. Heparin also started. Admission orders will be started. EKG Findings - EKG Comments: EKG Findings:: A. fib with slow ventricular response, rate 47. QRS 88. QT 342. QTC 302. Right axis. Normal QRS. Nonspecific ST-T. Medical Decision Making - Lab Data Result diagrams: 07/06/21 09:24 07/06/21 09:24 Lab Results 07/06/21 07/06/21 07/06/21 Range/Units 09:24 09:24 09:24 WBC 17.1 H (3.8-10.6) k/uL RBC 3.69 L (3.80-5.40) m/uL Hgb 11.1 L (11.4-16.0) gm/dL Hct 35.7 (34.0-46.0) % MCV 96.8 (80.0-100.0) fL MCH 30.2 (25.0-35.0) pg MCHC 31.2 (31.0-37.0) g/dL RDW 15.8 H (11.5-15.5) % Plt Count 265 (150-450) k/uL MPV 9.2 Neutrophils % 87 % Lymphocytes % 5 % Monocytes % 6 % Eosinophils % 0 % Basophils % 0 % Neutrophils # 14.8 H (1.3-7.7) k/uL Lymphocytes # 0.9 L (1.0-4.8) k/uL Monocytes # 1.0 (0-1.0) k/uL Eosinophils # 0.0 (0-0.7) k/uL Basophils # 0.0 (0-0.2) k/uL Hypochromasia Slight PT 14.8 H (9.0-12.0) sec INR 1.5 H (<1.2) APTT 22.0 (22.0-30.0) sec Sodium 139 (137-145) mmol/L Potassium 6.1 H* (3.5-5.1) mmol/L Chloride 107 (98-107) mmol/L Carbon Dioxide 6 L* (22-30) mmol/L Anion Gap 26 mmol/L BUN 51 H (7-17) mg/dL Creatinine 2.56 H (0.52-1.04) mg/dL Est GFR (CKD-EPI)AfAm 20 (>60 ml/min/1.73 sqM) Est GFR (CKD-EPI)NonAf 17 (>60 ml/min/1.73 sqM) Glucose 64 L (74-99) mg/dL Plasma Lactic Acid Madi (0.7-2.0) mmol/L Calcium 8.7 (8.4-10.2) mg/dL Magnesium 2.6 H (1.6-2.3) mg/dL Total Bilirubin 2.7 H (0.2-1.3) mg/dL ALT 356 H (4-34) U/L Alkaline Phosphatase 161 H (38-126) U/L Troponin I (0.000-0.034) ng/mL NT-Pro-B Natriuret Pep pg/mL Total Protein 6.1 L (6.3-8.2) g/dL Albumin 3.5 (3.5-5.0) g/dL TSH 4.510 (0.465-4.680) mIU/L Free T4 1.50 (0.78-2.19) ng/dL Coronavirus (PCR) (Not Detectd) 07/06/21 07/06/21 07/06/21 Range/Units 09:24 09:24 09:24 WBC (3.8-10.6) k/uL RBC (3.80-5.40) m/uL Hgb (11.4-16.0) gm/dL Hct (34.0-46.0) % MCV (80.0-100.0) fL MCH (25.0-35.0) pg MCHC (31.0-37.0) g/dL RDW (11.5-15.5) % Plt Count (150-450) k/uL MPV Neutrophils % % Lymphocytes % % Monocytes % % Eosinophils % % Basophils % % Neutrophils # (1.3-7.7) k/uL Lymphocytes # (1.0-4.8) k/uL Monocytes # (0-1.0) k/uL Eosinophils # (0-0.7) k/uL Basophils # (0-0.2) k/uL Hypochromasia PT (9.0-12.0) sec INR (<1.2) APTT (22.0-30.0) sec Sodium (137-145) mmol/L Potassium (3.5-5.1) mmol/L Chloride (98-107) mmol/L Carbon Dioxide (22-30) mmol/L Anion Gap mmol/L BUN (7-17) mg/dL Creatinine (0.52-1.04) mg/dL Est GFR (CKD-EPI)AfAm (>60 ml/min/1.73 sqM) Est GFR (CKD-EPI)NonAf (>60 ml/min/1.73 sqM) Glucose (74-99) mg/dL Plasma Lactic Acid Madi 14.9 H* (0.7-2.0) mmol/L Calcium (8.4-10.2) mg/dL Magnesium (1.6-2.3) mg/dL Total Bilirubin (0.2-1.3) mg/dL ALT (4-34) U/L Alkaline Phosphatase (38-126) U/L Troponin I 0.106 H* (0.000-0.034) ng/mL NT-Pro-B Natriuret Pep 58959 pg/mL Total Protein (6.3-8.2) g/dL Albumin (3.5-5.0) g/dL TSH (0.465-4.680) mIU/L Free T4 (0.78-2.19) ng/dL Coronavirus (PCR) (Not Detectd) 07/06/21 Range/Units 09:25 WBC (3.8-10.6) k/uL RBC (3.80-5.40) m/uL Hgb (11.4-16.0) gm/dL Hct (34.0-46.0) % MCV (80.0-100.0) fL MCH (25.0-35.0) pg MCHC (31.0-37.0) g/dL RDW (11.5-15.5) % Plt Count (150-450) k/uL MPV Neutrophils % % Lymphocytes % % Monocytes % % Eosinophils % % Basophils % % Neutrophils # (1.3-7.7) k/uL Lymphocytes # (1.0-4.8) k/uL Monocytes # (0-1.0) k/uL Eosinophils # (0-0.7) k/uL Basophils # (0-0.2) k/uL Hypochromasia PT (9.0-12.0) sec INR (<1.2) APTT (22.0-30.0) sec Sodium (137-145) mmol/L Potassium (3.5-5.1) mmol/L Chloride (98-107) mmol/L Carbon Dioxide (22-30) mmol/L Anion Gap mmol/L BUN (7-17) mg/dL Creatinine (0.52-1.04) mg/dL Est GFR (CKD-EPI)AfAm (>60 ml/min/1.73 sqM) Est GFR (CKD-EPI)NonAf (>60 ml/min/1.73 sqM) Glucose (74-99) mg/dL Plasma Lactic Acid Madi (0.7-2.0) mmol/L Calcium (8.4-10.2) mg/dL Magnesium (1.6-2.3) mg/dL Total Bilirubin (0.2-1.3) mg/dL ALT (4-34) U/L Alkaline Phosphatase (38-126) U/L Troponin I (0.000-0.034) ng/mL NT-Pro-B Natriuret Pep pg/mL Total Protein (6.3-8.2) g/dL Albumin (3.5-5.0) g/dL TSH (0.465-4.680) mIU/L Free T4 (0.78-2.19) ng/dL Coronavirus (PCR) Not Detected (Not Detectd) - Radiology Data Radiology results: image reviewed (Chest x-ray shows multifocal patchy opacities) Critical Care Time Critical Care Time: Yes Total Critical Care Time: 53 Disposition Clinical Impression: Bradycardia, Congestive heart failure Disposition: ADMITTED IP TO THIS [facility] Condition: Critical Is patient prescribed a controlled substance at d/c from ED?: No Decision Time: 10:53
--- NOTE | 2021-07-06 09:36 | XR ---
EXAMINATION TYPE: XR chest 1V portable DATE OF EXAM: 07/06/2021 Comparison: 06/29/2021 Clinical History: 76-year-old female shortness of breath, dyspnea Findings: Heart upper limits of normal in size. Multifocal patchy opacities especially left mid lung, left base , right suprahilar and right infrahilar regions. Possible trace left pleural effusion. Impression: Multifocal patchy opacities and possible trace left effusion. Considerations include multifocal pneum onia, COVID pneumonia, and patchy pulmonary edema.
[2021-07-06] MEDS ORDERED: ATROPINE SULFATE 0.1 MG/ML 10ML SYRINGE IV STA (09:50)
[2021-07-06 09:54] LABS: Albumin 3.5 g/dL (3.5-5.0); Calcium 8.7 mg/dL (8.4-10.2); Magnesium 2.6 mg/dL (1.6-2.3); Total Bilirubin 2.7 mg/dL (0.2-1.3); Total Protein 6.1 g/dL (6.3-8.2)
[2021-07-06] MEDS: DOPamine DRIP 800 MG in DEXTROSE/WATER 1 250ML.BAG IV ONE ×2 (10:03→10:21)
[2021-07-06 10:04] LABS: Potassium 6.1 mmol/L (3.5-5.1)
[2021-07-06 10:06] LABS: Basophils % (A) 0 %; Eosinophils % (A) 0 %; HCT 35.7 % (34.0-46.0); HGB 11.1 gm/dL (11.4-16.0); Hypochromasia Slight; Lymphocytes # (A) 0.9 k/uL (1.0-4.8); Lymphocytes % (A) 5 %; MCH 30.2 pg (25.0-35.0); MCHC 31.2 g/dL (31.0-37.0); MCV 96.8 fL (80.0-100.0); Mean Platelet Volume 9.2; Monocytes % (A) 6 %; Neutrophils # (A) 14.8 k/uL (1.3-7.7); Neutrophils % (A) 87 %; Platelet Count 265 k/uL (150-450); RBC 3.69 m/uL (3.80-5.40); RDW 15.8 % (11.5-15.5); WBC 17.1 k/uL (3.8-10.6)
[2021-07-06] MEDS ORDERED: SODIUM BICARB 8.4% 50 ML SYR (1 MEQ/ML) IV STA ×2 (10:06→15:09)
[2021-07-06 10:08] LABS: INR 1.5 (<1.2); Prothrombin Time 14.8 sec (9.0-12.0); T4, Free (Free Thyroxine) 1.5 ng/dL (0.78-2.19)
[2021-07-06] MEDS ORDERED: SODIUM CHLORIDE 0.9% 250 ML IV STA (10:23)
[2021-07-06] MEDS ORDERED: SODIUM CHLORIDE 0.9% 1,000 ML IV ONE (10:26)
[2021-07-06] MEDS ORDERED: HEPARIN SODIUM 1,000 UN/ML (10ML VL) IV ONE (10:54)
[2021-07-06] MEDS ORDERED: ASPIRIN 81 MG PO STA (10:54)
[2021-07-06] MEDS ORDERED: CALCIUM GLUCONATE 1 GM in SODIUM CHLORIDE 0.9% 100 ML IVPB ONE ×2 (11:15→15:12)
[2021-07-06] MEDS ORDERED: HEPARIN SOD,PORK IN 0.45% NACL 25,000 UNIT in 0.45% NACL 1 250ML.BAG IV SCH (11:15)
[2021-07-06 11:56] LABS: Amorphous Sediment,Urine Occasional /hpf; Appearance,Urine Turbid (Clear); Bacteria,Urine Occasional /hpf; Bilirubin,Urine Negative (Negative); Blood,Urine Small (Negative); Cellular Casts,Urine 7 /lpf (0); Color,Urine Dark Yellow; Glucose,Urine (UA) Negative (Negative); Hyaline Casts,Urine 72 /lpf (0-2); Ketones,Urine Negative (Negative); Leukocyte Esterase,Urine Large (Negative); Mucus,Urine Few /hpf; Nitrite,Urine Negative (Negative); Protein,Urine 2+ (Negative); RBC,Urine 29 /hpf (0-5); Specific Gravity,Urine 1.016 (1.001-1.035); Squamous Epithelial Cell,Urine 4 /hpf (0-4); WBC,Urine >182 /hpf (0-5)
--- NOTE | 2021-07-06 13:59 | P.CNPUL ---
<Roseann Purcell - Last Filed: 07/06/21 13:38> History of Present Illness Consult date: 07/06/21 Requesting physician: Aidan E Leana Reason for consult: other Chief complaint: shortness of breath History of present illness: This is a 76-year-old female patient with a history of diastolic congestive heart failure,dementia, Parkinson's disease, hypertension, former smoker. She was recently admitted here for acute renal failure/dehydration, generalized weakness and debility and elevated troponins. Echocardiogram revealed preserved left ventricular systolic function with ejection fraction 60-65%. She was also found to have a urinary tract infection secondary to pseudomonas aeruginosa. She was treated and subsequent discharge home on 07/02/2021. She is brought in to the emergency room this morning with shortness of breath. She Was found to be significantly bradycardic in atrial fibrillation with heart rates dropping into the high 20s low 30s. She was initially given atropine. She was started on dopamine drip. She is also on a heparin drip for troponin leak. troponin 0.106. ProBNP 19,500. AST 2609. ALT 356. Lactic acid 14.9. Glucose 64. Creatinine 2.56. BUN 51. Sodium 139. Potassium 6.1. Chloride 107. Bicarb 6. Anion gap 26. White count 17.1. Hemoglobin 11.1. Platelets 265. Chest x-ray reveals multifocal patchy opacities and possible trace left effusion. COVID-19 screen is negative. EKG reveals atrial fibrillation with significant bradycardia and ST and T wave abnormalities. she is seen today in consultation in the emergency department. She is minimally arousable. Currently grady nonrebreather mask with O2 saturation of 90%. Blood pressure 92/52. Respirations 26. Heart rate 44. She is hypothermic with a rectal temperature of 94.1. Review of Systems ROS unobtainable: due to mental status Past Medical History Past Medical History: Hypertension Additional Past Medical History / Comment(s): Parkinson's disease History of Any Multi-Drug Resistant Organisms: None Reported Past Surgical History: Hysterectomy Past Psychological History: No Psychological Hx Reported Smoking Status: Former smoker Past Alcohol Use History: None Reported Past Drug Use History: None Reported Medications and Allergies Home Medications Medication Instructions Recorded Confirmed Type lisinopriL [Zestril] 20 mg PO DAILY@0630 03/30/14 07/06/21 History Atorvastatin [Lipitor] 40 mg PO HS 04/07/21 07/06/21 History Calcium Carbonate [Calcium] 600 mg PO DAILY 04/07/21 07/06/21 History Carbidopa-Levodopa 25-100 mg 1 tab PO TID@0630,1200,1830 04/07/21 07/06/21 History [Sinemet 25-100 mg] Cholecalciferol [Vitamin D3 (25 100 mcg PO HS 04/07/21 07/06/21 History Mcg = 1000 Iu)] Isosorbide Mononitrate ER [Imdur] 30 mg PO DAILY 30 Days #30 04/07/21 07/06/21 Rx tab.er.24h Metoprolol Succinate (ER) [Toprol 50 mg PO DAILY@0630 04/07/21 07/06/21 History XL] amantadine HCL [Amantadine] 100 mg PO TID@0630,1200,1830 04/07/21 07/06/21 History Carbidopa/Levodopa [Parcopa 25-100 1 tab SL BID PRN 06/29/21 07/06/21 History mg Odt] Cbd Oil 75 mg PO BID 06/29/21 07/06/21 History Super B Complex 1 tab PO DAILY 06/29/21 07/06/21 History Aspirin 81 mg PO DAILY tab 07/02/21 07/06/21 Rx Clopidogrel [Plavix] 75 mg PO DAILY #30 tab 07/02/21 07/06/21 Rx amLODIPine [Norvasc] 10 mg PO DAILY #30 tab 07/02/21 07/06/21 Rx Donepezil [Aricept] 10 mg PO DAILY 07/06/21 07/06/21 History Allergies Allergy/AdvReac Type Severity Reaction Status Date / Time No Known Allergies Allergy Verified 07/06/21 11:11 Physical Exam Vitals: Vital Signs Temp Pulse Resp BP Pulse Ox 07/06/21 13:13 44 L 26 H 92/52 90 L 07/06/21 12:23 94/41 07/06/21 12:10 94.1 F L 45 L 24 95 07/06/21 11:10 93.7 F L 42 L 28 H 111/79 96 07/06/21 10:57 93.4 F L 07/06/21 10:52 46 L 28 H 92/30 96 07/06/21 10:41 40 L 30 H 81/50 99 07/06/21 10:16 58 L 30 H 48/32 90 L 07/06/21 10:00 62 30 H 99/56 07/06/21 09:51 78 30 H 105/55 92 L 07/06/21 09:48 26 L 32 H 67/24 78 L 07/06/21 09:03 32 L 28 H 117/97 100 Intake and Output 07/05/21 07/06/21 07/06/21 22:59 06:59 14:59 Intake Total 4.433 Balance 4.433 Intake: Intake, IV Titration 4.433 Amount DOPamine DRIP 800 mg In 4.433 Dextrose/Water 1 250ml. bag @ 5 MCG/KG/MIN 3.827 mls/hr IV .Q24H ONE Rx#: [id number] Other: Weight 40.823 kg GENERAL EXAM: Drowsy, lethargic, frail cachectic 76-year-old female patient, on a nonrebreather mask. HEAD: Normocephalic. EYES: Normal reaction of pupils, equal size. NOSE: Clear with pink turbinates. THROAT: No erythema or exudates. NECK: No masses, no JVD. CHEST: No chest wall deformity. LUNGS: Equal air entry with bilateral scattered rhonchis. CVS: S1 and S2 normal with no audible murmur, regular rhythm. ABDOMEN: No hepatosplenomegaly, normal bowel sounds, no guarding or rigidity. SPINE: No scoliosis or deformity SKIN: No rashes CENTRAL NERVOUS SYSTEM: unable to assess due to lethargy, tone is normal in all 4 extremities. EXTREMITIES: There is no peripheral edema. No clubbing, no cyanosis. Peripheral pulses are intact. Results - Laboratory Findings CBC and BMP: 07/06/21 09:24 07/06/21 09:24 PT/INR, D-dimer PT 14.8 sec (9.0-12.0) H 07/06/21 09:24 INR 1.5 (<1.2) H 07/06/21 09:24 Abnormal lab findings: Abnormal Labs 07/06/21 07/06/21 07/06/21 09:24 09:24 09:24 WBC 17.1 H RBC 3.69 L Hgb 11.1 L RDW 15.8 H Neutrophils # 14.8 H Lymphocytes # 0.9 L PT 14.8 H INR 1.5 H Potassium 6.1 H* Carbon Dioxide 6 L* BUN 51 H Creatinine 2.56 H Glucose 64 L Plasma Lactic Acid Madi Magnesium 2.6 H Total Bilirubin 2.7 H AST 2609 H ALT 356 H Alkaline Phosphatase 161 H Troponin I Total Protein 6.1 L Free T3 pg/mL 2.1 L Urine Appearance Urine Protein Urine Blood Ur Leukocyte Esterase Urine RBC Urine WBC Amorphous Sediment Urine Bacteria Hyaline Casts Urine Mucus 07/06/21 07/06/21 07/06/21 09:24 09:24 10:45 WBC RBC Hgb RDW Neutrophils # Lymphocytes # PT INR Potassium Carbon Dioxide BUN Creatinine Glucose Plasma Lactic Acid Madi 14.9 H* Magnesium Total Bilirubin AST ALT Alkaline Phosphatase Troponin I 0.106 H* Total Protein Free T3 pg/mL Urine Appearance Turbid H Urine Protein 2+ H Urine Blood Small H Ur Leukocyte Esterase Large H Urine RBC 29 H Urine WBC >182 H Amorphous Sediment Occasional H Urine Bacteria Occasional H Hyaline Casts 72 H Urine Mucus Few H - Diagnostic Findings Chest x-ray: image reviewed Assessment and Plan Assessment: 1 Acute hypoxemic respiratory failure secondary to suspected diastolic congestive heart failure, possible aspiration pneumonia 2 Acute urinary tract infection with recent admission and culture positive for pseudomonas aeruginosa 3 Acute sepsis secondary to above 4 Anion gap metabolic acidosis secondary to above 5 Acute renal failure secondary to above/dehydration 6 Hyperkalemia secondary to above 7 Significant bradycardia secondary to hyperkalemia 8 Atrial fibrillation, bradycardic 9 Transaminitis secondary to sepsis 10 Leukocytosis 11 Hypothermia plan: The patient was seen and evaluated by Dr. Mayo Chest x-ray and labs reviewed Add bicarb drip Add cefepime Calcium gluconate given Gentle fluid resuscitation Continued on dopamine drip Continued on heparin drip DO NOT RESUSCITATE/DO NOT INTUBATE CODE STATUS Admit to the intensive care unit Follow-up labs pending We will continue to follow and make further recommendations based on her clinical status I, the cosigning physician, performed a history & physical examination of the patient. Lungs sounds bilateral scattered rhonchir. Maintaining good O2 saturations in the 90s on a nonrebreather mask. I discussed the assessment and plan of care with my nurse practitioner, Roseann Purcell. I attest to the above consultation as dictated by her. Time with Patient: Greater than 30 <Aleksandr Mayo - Last Filed: 07/06/21 15:13> Physical Exam Vitals: Vital Signs Temp Pulse Resp BP Pulse Ox 07/06/21 14:52 94.6 F L 07/06/21 13:13 44 L 26 H 92/52 90 L 07/06/21 12:23 94/41 07/06/21 12:10 94.1 F L 45 L 24 95 07/06/21 11:10 93.7 F L 42 L 28 H 111/79 96 07/06/21 10:57 93.4 F L 07/06/21 10:52 46 L 28 H 92/30 96 07/06/21 10:41 40 L 30 H 81/50 99 07/06/21 10:16 58 L 30 H 48/32 90 L 07/06/21 10:00 62 30 H 99/56 07/06/21 09:51 78 30 H 105/55 92 L 07/06/21 09:48 26 L 32 H 67/24 78 L 07/06/21 09:03 32 L 28 H 117/97 100 Intake and Output 07/06/21 07/06/21 07/06/21 06:59 14:59 22:59 Intake Total 4.433 Balance 4.433 Intake: Intake, IV Titration 4.433 Amount DOPamine DRIP 800 mg In 4.433 Dextrose/Water 1 250ml. bag @ 5 MCG/KG/MIN 3.827 mls/hr IV .Q24H ONE Rx#: [id number] Other: Weight 40.823 kg Results - Laboratory Findings CBC and BMP: 07/06/21 09:24 07/06/21 09:24 PT/INR, D-dimer PT 14.8 sec (9.0-12.0) H 07/06/21 09:24 INR 1.5 (<1.2) H 07/06/21 09:24 Abnormal lab findings: Abnormal Labs 07/06/21 07/06/21 07/06/21 09:24 09:24 09:24 WBC 17.1 H RBC 3.69 L Hgb 11.1 L RDW 15.8 H Neutrophils # 14.8 H Lymphocytes # 0.9 L PT 14.8 H INR 1.5 H Potassium 6.1 H* Carbon Dioxide 6 L* BUN 51 H Creatinine 2.56 H Glucose 64 L POC Glucose (mg/dL) Plasma Lactic Acid Madi Magnesium 2.6 H Total Bilirubin 2.7 H AST 2609 H ALT 356 H Alkaline Phosphatase 161 H Troponin I Total Protein 6.1 L Free T3 pg/mL 2.1 L Urine Appearance Urine Protein Urine Blood Ur Leukocyte Esterase Urine RBC Urine WBC Amorphous Sediment Urine Bacteria Hyaline Casts Urine Mucus 07/06/21 07/06/21 07/06/21 09:24 09:24 10:45 WBC RBC Hgb RDW Neutrophils # Lymphocytes # PT INR Potassium Carbon Dioxide BUN Creatinine Glucose POC Glucose (mg/dL) Plasma Lactic Acid Madi 14.9 H* Magnesium Total Bilirubin AST ALT Alkaline Phosphatase Troponin I 0.106 H* Total Protein Free T3 pg/mL Urine Appearance Turbid H Urine Protein 2+ H Urine Blood Small H Ur Leukocyte Esterase Large H Urine RBC 29 H Urine WBC >182 H Amorphous Sediment Occasional H Urine Bacteria Occasional H Hyaline Casts 72 H Urine Mucus Few H 07/06/21 07/06/21 07/06/21 13:08 13:08 14:31 WBC RBC Hgb RDW Neutrophils # Lymphocytes # PT INR Potassium Carbon Dioxide BUN Creatinine Glucose POC Glucose (mg/dL) 47 L Plasma Lactic Acid Madi 13.8 H* Magnesium Total Bilirubin AST ALT Alkaline Phosphatase Troponin I 0.121 H* Total Protein Free T3 pg/mL Urine Appearance Urine Protein Urine Blood Ur Leukocyte Esterase Urine RBC Urine WBC Amorphous Sediment Urine Bacteria Hyaline Casts Urine Mucus Assessment and Plan Assessment: This is a 76-year-old female patient who presented to the ICU in the septic condition with signs of multisystem organ failure. The patient was seen in joint evaluation with the nurse practitioner. Please refer to the above- mentioned details. In summary, the patient has an underlying UTI with secondary sepsis. Previous cultures and urine was consistent with pseudomonas aeruginosa. The patient also has been elected hypoxic respiratory failure currently on 100% nonrebreather facemask and a chest x-ray showing diffuse bilateral pulmonary infiltrates/edema. The patient is severely acidotic. Lactic acid level was above 10. The patient had significant electrode disturbances with acute hyperkalemia in association with her metabolic acidosis. The patient was in acute kidney injury. The patient had shock liver. Troponins were elevated. ProBNP level is significantly elevated. For now, the patient is in the intensive care units. The patient is to be resuscitated aggressively. She is a DNR/DNI CODE STATUS. Nevertheless, we should be able to give it at least 2 L of normal saline for now immediately and put her on a bicarb infusion at the rate of 150 mL an hour. The patient will be started on IV antibiotics. She was given IV cefepime in the emergency department and this will be continued. We'll utilize pressors. I noted that she is bradycardic and she has sinus bradycardia. There may be an underlying atrial fibrillation. I will put her on epinephrine drip for blood pressure control. We'll insert an arterial line. We'll give calcium gluconate. We'll repeat the potassium level. Monitor lactic acid level. Obtain blood cultures. Obtain urine cultures. Keep her on 100% nonrebreather facemask. Monitor the blood sugar. Avoid hypoglycemia. Condition is critical. High likelihood for mortality based on her septic shock and multisystem organ failure. The baseline echocardiogram was also needed to evaluate her LV function.
[2021-07-06] MEDS ORDERED: CEFEPIME 2 GM in SODIUM CHLORIDE 0.9% 100 ML IVPB SCH (14:00)
[2021-07-06] MEDS ORDERED: DEXTROSE 5% IN WATER 1,000 ML with SODIUM BICARB (1 MEQ/ML) 150 ML IV SCH ×2 (14:00→15:15)
[2021-07-06] MEDS ORDERED: CEFEPIME 1 GM in SODIUM CHLORIDE 0.9% 50 ML IVPB STA (14:06)
[2021-07-06 14:33] LABS: Glucose,Whole Blood 47 mg/dL (75-99)
[2021-07-06] MEDS ORDERED: DEXTROSE 50% SYRINGE 50 ML IVP ONE (14:33)
[2021-07-06] MEDS ORDERED: DEXTROSE 50% SYRINGE 50 ML IVP STA (15:34)
[2021-07-06] MEDS ORDERED: INSULIN REGULAR 100 UNIT/ML VIAL (IV) IV ONE (15:34)
[2021-07-06] MEDS: SODIUM CHLORIDE 0.9% 1,000 ML IV SCH ×2 (15:34→15:44)
--- NOTE | 2021-07-06 15:34 | P.PCN ---
Date of Procedure: 07/06/21 Preoperative Diagnosis: Septic shock Postoperative Diagnosis: Septic shock Procedure(s) Performed: Insertion of a triple-lumen catheter and arterial line Anesthesia: local Surgeon: Aleksandr Mayo Estimated Blood Loss (ml): 0 Pathology: other Condition: critical Disposition: ICU Operative Findings: Indication: Hemodynamic monitoring/Intravenous access. A time-out was completed verifying correct patient, procedure, site, positioning, and implant(s) or special equipment if applicable. The patient was placed in a dependent position appropriate for central line placement based on the vein to be cannulated. The patient s right groin was prepped and draped in sterile fashion. 1% Lidocaine was used to anesthetize the surrounding skin area. A triple lumen 9F Cordis catheter was introduced into the right common femoral vein using Seldinger technique. The catheter was threaded smoothly over the guide wire and appropriate blood return was obtained. Each lumen of the catheter was evacuated of air and flushed with sterile saline. The catheter was then sutured in place to the skin and a sterile dressing applied. Perfusion to the extremity distal to the point of catheter insertion was checked and found to be adequate. The patient tolerated the procedure well and there were no complications. Indication: Hemodynamic monitoring. A time-out was completed verifying correct patient, procedure, site, positioning, and implant(s) or special equipment if applicable. Allens test was performed to ensure adequate perfusion. The patient s right groin was prepped and draped in sterile fashion. 1% Lidocaine was used to anesthetize the area. An 18G Arrow arterial line was introduced into the right femoral artery. The catheter was threaded over the guide wire and the needle was removed with appropriate pulsatile blood return. Blood loss was minimal. The catheter was then sutured in place to the skin and a sterile dressing applied. Perfusion to the extremity distal to the point of catheter insertion was checked and found to be adequate. The patient tolerated the procedure well and there were no complications.
[2021-07-06 16:13] VITALS: TEMP 93.6
[2021-07-06] MEDS ORDERED: MORPHINE SULFATE 2 MG/ML SYRINGE IV PRN (16:21)
[2021-07-06] MEDS ORDERED: LORazepam 2 MG/ML INJ IV PRN (16:21)
[2021-07-06] MEDS ORDERED: MORPHINE SULFATE 4 MG/ML SYRINGE IV PRN (16:21)
[2021-07-06] MEDS ORDERED: ATROPINE OPHTH SOLN 1% 5ML BTL SUBLINGUAL PRN (16:21)
[2021-07-06] MEDS ORDERED: MORPHINE SULFATE (100 MG/2 ML) 100 MG in SODIUM CHLORIDE 0.9% 100 ML IV SCH (16:30)
[2021-07-06] MEDS ORDERED: SCOPOLAMINE 1.5MG/72HR PATCH TRANSDERM SCH (16:30)
[2021-07-06 17:01] VITALS: BP 65/39; PULSE 0; RESP 0
--- NOTE | 2021-07-06 22:55 | P.HPIM ---
History of Present Illness This is a pleasant 76 years old female with past medical history of hypertension, dementia, Parkinson disease not on medication. Presents because of dyspnea. Also on admission patient was found to be bradycardic. Patient could not provide information. Family was at bedside. Patient was transferred to the ICU. She was bradycardic, hypoxic and she was doing poorly. Family and was at bedside and discussed case with them and then we had a family meeting. She is hypothermic 94.6 and 93.4. Bradycardic and 30s, tachypneic 34, hypertensive 92/56. And hypoxic 81% on 15 L via nonrebreather. She has leukocytosis of 17.1. Hemoglobin 11.1. INR is 1.5. Creatinine elevated 2.5, potassium 6.1. Liver enzymes elevated with AST 10/22/2008 and ALT 356 ProBNP is 19,500. TSH normal. Coronavirus not detected. EKG showing atrial fibrillation with a rate of 57 Chest x-ray: Multifocal patchy opacity and possible trace left effusion. Suspicious for multifocal pneumonia In the emergency room she received fluid resuscitation and started on cefepime. Also aspirin 325 mg daily. Bicarbonate drip. Protonix and normal saline Review of Systems n/a Past Medical History Past Medical History: Hypertension Additional Past Medical History / Comment(s): Parkinson's disease History of Any Multi-Drug Resistant Organisms: None Reported Past Surgical History: Hysterectomy Past Psychological History: No Psychological Hx Reported Smoking Status: Former smoker Past Alcohol Use History: None Reported Past Drug Use History: None Reported Medications and Allergies Home Medications Medication Instructions Recorded Confirmed Type RX: lisinopriL [Zestril] 20 mg PO DAILY@0630 03/30/14 07/06/21 History RX: Atorvastatin [Lipitor] 40 mg PO HS 04/07/21 07/06/21 History RX: Calcium Carbonate [Calcium] 600 mg PO DAILY 04/07/21 07/06/21 History RX: Carbidopa-Levodopa 25-100 mg 1 tab PO TID@0630,1200,1830 04/07/21 07/06/21 History [Sinemet 25-100 mg] RX: Cholecalciferol [Vitamin D3 100 mcg PO HS 04/07/21 07/06/21 History (25 Mcg = 1000 Iu)] RX: Isosorbide Mononitrate ER 30 mg PO DAILY 30 Days #30 04/07/21 07/06/21 Rx [Imdur] tab.er.24h RX: Metoprolol Succinate (ER) 50 mg PO DAILY@0630 04/07/21 07/06/21 History [Toprol XL] RX: amantadine HCL [Amantadine] 100 mg PO TID@0630,1200,1830 04/07/21 07/06/21 History Cbd Oil 75 mg PO BID 06/29/21 07/06/21 History RX: Carbidopa/Levodopa [Parcopa 1 tab SL BID PRN 06/29/21 07/06/21 History 25-100 mg Odt] Super B Complex 1 tab PO DAILY 06/29/21 07/06/21 History RX: Aspirin 81 mg PO DAILY tab 07/02/21 07/06/21 Rx RX: Clopidogrel [Plavix] 75 mg PO DAILY #30 tab 07/02/21 07/06/21 Rx RX: amLODIPine [Norvasc] 10 mg PO DAILY #30 tab 07/02/21 07/06/21 Rx Donepezil [Aricept] 10 mg PO DAILY 07/06/21 07/06/21 History Allergies Allergy/AdvReac Type Severity Reaction Status Date / Time No Known Allergies Allergy Verified 07/06/21 11:11 Physical Exam Vitals: Vital Signs Temp Pulse Resp BP Pulse Ox 07/06/21 15:00 94.6 F L 38 L 34 H 92/56 81 L 07/06/21 14:52 94.6 F L 07/06/21 14:45 37 L 34 H 83/33 86 L 07/06/21 14:30 36 L 28 H 90 L 07/06/21 13:13 44 L 26 H 92/52 90 L 07/06/21 12:23 94/41 07/06/21 12:10 94.1 F L 45 L 24 95 07/06/21 11:10 93.7 F L 42 L 28 H 111/79 96 07/06/21 10:57 93.4 F L 07/06/21 10:52 46 L 28 H 92/30 96 07/06/21 10:41 40 L 30 H 81/50 99 07/06/21 10:16 58 L 30 H 48/32 90 L 07/06/21 10:00 62 30 H 99/56 07/06/21 09:51 78 30 H 105/55 92 L 07/06/21 09:48 26 L 32 H 67/24 78 L 07/06/21 09:03 32 L 28 H 117/97 100 Intake and Output 07/06/21 07/06/21 07/06/21 06:59 14:59 22:59 Intake Total 4.433 2150 Output Total 250 Balance 4.433 1900 Intake: IV 2150 Dextrose 5% in Water 1, 150 000 ml @ 150 mls/hr IV . Q7H40M ALMAS with Sodium Bicarb (1 Meq/ml) 150 ml Rx#:[id number] Sodium Chloride 0.9% 2, 2000 000 ml @ 999 mls/hr IV . Q2H1M ONE Rx#:[id number] Intake, IV Titration 4.433 Amount DOPamine DRIP 800 mg In 4.433 Dextrose/Water 1 250ml. bag @ 5 MCG/KG/MIN 3.827 mls/hr IV .Q24H ONE Rx#: [id number] Output: Urine 250 Other: Weight 40.823 kg -GENERAL: The patient is obtunded and unresponsive, she has gasping breathing distress. Very frail HEENT: Pupils are round and equally reacting to light. EOMI. No scleral icterus. No conjunctival pallor. Normocephalic, atraumatic. No pharyngeal erythema. No thyromegaly. CARDIOVASCULAR: S1 and S2 present. No murmurs, rubs, or gallops. -PULMONARY: Chest is clear to auscultation, bilateral crepitation and gasping breathing ABDOMEN: Soft, nontender, nondistended, normoactive bowel sounds. No palpable organomegaly. MUSCULOSKELETAL: No joint swelling or deformity. EXTREMITIES: No cyanosis, clubbing, or pedal edema. NEUROLOGICAL: Gross neurological examination did not reveal any focal deficits. SKIN: No rashes. No petechiae Results CBC & Chem 7: 07/06/21 09:24 07/06/21 15:02 Labs: Abnormal Lab Results - Last 24 Hours (Table) 07/06/21 07/06/21 07/06/21 Range/Units 09:24 09:24 09:24 WBC 17.1 H (3.8-10.6) k/uL RBC 3.69 L (3.80-5.40) m/uL Hgb 11.1 L (11.4-16.0) gm/dL RDW 15.8 H (11.5-15.5) % Neutrophils # 14.8 H (1.3-7.7) k/uL Lymphocytes # 0.9 L (1.0-4.8) k/uL PT 14.8 H (9.0-12.0) sec INR 1.5 H (<1.2) Potassium 6.1 H* (3.5-5.1) mmol/L Carbon Dioxide 6 L* (22-30) mmol/L BUN 51 H (7-17) mg/dL Creatinine 2.56 H (0.52-1.04) mg/dL Glucose 64 L (74-99) mg/dL POC Glucose (mg/dL) (75-99) mg/dL Plasma Lactic Acid Madi (0.7-2.0) mmol/L Calcium (8.4-10.2) mg/dL Magnesium 2.6 H (1.6-2.3) mg/dL Total Bilirubin 2.7 H (0.2-1.3) mg/dL AST 2609 H (14-36) U/L ALT 356 H (4-34) U/L Alkaline Phosphatase 161 H (38-126) U/L Troponin I (0.000-0.034) ng/mL Total Protein 6.1 L (6.3-8.2) g/dL Free T3 pg/mL 2.1 L (2.8-5.3) pg/ml Urine Appearance (Clear) Urine Protein (Negative) Urine Blood (Negative) Ur Leukocyte Esterase (Negative) Urine RBC (0-5) /hpf Urine WBC (0-5) /hpf Amorphous Sediment (None) /hpf Urine Bacteria (None) /hpf Hyaline Casts (0-2) /lpf Urine Mucus (None) /hpf 07/06/21 07/06/21 07/06/21 Range/Units 09:24 09:24 10:45 WBC (3.8-10.6) k/uL RBC (3.80-5.40) m/uL Hgb (11.4-16.0) gm/dL RDW (11.5-15.5) % Neutrophils # (1.3-7.7) k/uL Lymphocytes # (1.0-4.8) k/uL PT (9.0-12.0) sec INR (<1.2) Potassium (3.5-5.1) mmol/L Carbon Dioxide (22-30) mmol/L BUN (7-17) mg/dL Creatinine (0.52-1.04) mg/dL Glucose (74-99) mg/dL POC Glucose (mg/dL) (75-99) mg/dL Plasma Lactic Acid Madi 14.9 H* (0.7-2.0) mmol/L Calcium (8.4-10.2) mg/dL Magnesium (1.6-2.3) mg/dL Total Bilirubin (0.2-1.3) mg/dL AST (14-36) U/L ALT (4-34) U/L Alkaline Phosphatase (38-126) U/L Troponin I 0.106 H* (0.000-0.034) ng/mL Total Protein (6.3-8.2) g/dL Free T3 pg/mL (2.8-5.3) pg/ml Urine Appearance Turbid H (Clear) Urine Protein 2+ H (Negative) Urine Blood Small H (Negative) Ur Leukocyte Esterase Large H (Negative) Urine RBC 29 H (0-5) /hpf Urine WBC >182 H (0-5) /hpf Amorphous Sediment Occasional H (None) /hpf Urine Bacteria Occasional H (None) /hpf Hyaline Casts 72 H (0-2) /lpf Urine Mucus Few H (None) /hpf 07/06/21 07/06/21 07/06/21 Range/Units 13:08 13:08 14:31 WBC (3.8-10.6) k/uL RBC (3.80-5.40) m/uL Hgb (11.4-16.0) gm/dL RDW (11.5-15.5) % Neutrophils # (1.3-7.7) k/uL Lymphocytes # (1.0-4.8) k/uL PT (9.0-12.0) sec INR (<1.2) Potassium (3.5-5.1) mmol/L Carbon Dioxide (22-30) mmol/L BUN (7-17) mg/dL Creatinine (0.52-1.04) mg/dL Glucose (74-99) mg/dL POC Glucose (mg/dL) 47 L (75-99) mg/dL Plasma Lactic Acid Madi 13.8 H* (0.7-2.0) mmol/L Calcium (8.4-10.2) mg/dL Magnesium (1.6-2.3) mg/dL Total Bilirubin (0.2-1.3) mg/dL AST (14-36) U/L ALT (4-34) U/L Alkaline Phosphatase (38-126) U/L Troponin I 0.121 H* (0.000-0.034) ng/mL Total Protein (6.3-8.2) g/dL Free T3 pg/mL (2.8-5.3) pg/ml Urine Appearance (Clear) Urine Protein (Negative) Urine Blood (Negative) Ur Leukocyte Esterase (Negative) Urine RBC (0-5) /hpf Urine WBC (0-5) /hpf Amorphous Sediment (None) /hpf Urine Bacteria (None) /hpf Hyaline Casts (0-2) /lpf Urine Mucus (None) /hpf 07/06/21 Range/Units 15:02 WBC (3.8-10.6) k/uL RBC (3.80-5.40) m/uL Hgb (11.4-16.0) gm/dL RDW (11.5-15.5) % Neutrophils # (1.3-7.7) k/uL Lymphocytes # (1.0-4.8) k/uL PT (9.0-12.0) sec INR (<1.2) Potassium 6.0 H (3.5-5.1) mmol/L Carbon Dioxide 9 L* (22-30) mmol/L BUN 56 H (7-17) mg/dL Creatinine 2.84 H (0.52-1.04) mg/dL Glucose 161 H (74-99) mg/dL POC Glucose (mg/dL) (75-99) mg/dL Plasma Lactic Acid Madi (0.7-2.0) mmol/L Calcium 8.0 L (8.4-10.2) mg/dL Magnesium (1.6-2.3) mg/dL Total Bilirubin (0.2-1.3) mg/dL AST (14-36) U/L ALT (4-34) U/L Alkaline Phosphatase (38-126) U/L Troponin I (0.000-0.034) ng/mL Total Protein (6.3-8.2) g/dL Free T3 pg/mL (2.8-5.3) pg/ml Urine Appearance (Clear) Urine Protein (Negative) Urine Blood (Negative) Ur Leukocyte Esterase (Negative) Urine RBC (0-5) /hpf Urine WBC (0-5) /hpf Amorphous Sediment (None) /hpf Urine Bacteria (None) /hpf Hyaline Casts (0-2) /lpf Urine Mucus (None) /hpf Thrombosis Risk Factor Assmnt - Choose All That Apply Any of the Below Risk Factors Present?: Yes Each Factor Represents 1 point: Medical pt on bed rest Other Risk Factors: Yes Each Risk Factor Represents 2 Points: Patient confined to bed Each Risk Factor Represents 3 Points: Age 75 years or older Other congenital or acquired thrombophilia - If yes, enter type in comment: No Thrombosis Risk Factor Assessment Total Risk Factor Score: 6 Thrombosis Risk Factor Assessment Level: High Risk Assessment and Plan Assessment: Septic shock Multifocal pneumonia Acute urinary tract infection Acute hypoxic respiratory failure Acute kidney injury with hyperkalemia Elevated troponin most likely secondary to her septic disease and kidney injury. Shock liver History of hypertension History of Parkinson disease Dementia Severe calories protein malnutrition Plan: This is a pleasant 76 years old female who presents with septic shock. Continue with ICU with critical care team management. Continue with broad-spectrum antibiotics and follow-up culture results. Continue with IV fluids. She is on bicarbonate drip Continue with oxygen as needed, patient may need intubation soon and mechanical ventilation per pulmonary team Labs and medication were reviewed.. Continue same treatment. Continue with symptomatic treatment. Resume home medication. Monitor lytes and vitals. DVT and GI prophylaxis. Further recommendations depends on the clinical course of the patient DVT prophylaxis: Subcutaneous heparin GI Prophylaxis: Ppi Prognosis is extremely poor We had discussion with the family including her , son and 3 young members, discussed the situation of the patient with them and the fact that she is very sick and many of her organs are failing and chances of survival are very low. Chance of question of . Plan of management discussed with them and they agreed with this plan. Chances of survival are very poor
[2021-07-07] MEDS ORDERED: CEFEPIME 1 GM in SODIUM CHLORIDE 0.9% 50 ML IVPB SCH ×2
[2021-07-07] MEDS ORDERED: PANTOPRAZOLE 40 MG/10 ML VIAL IV SCH (09:00)
[2021-07-07] MEDS ORDERED: ASPIRIN 325 MG TAB PO SCH (09:00)
== END 2021-07-06 18:02 | disposition expired | DRG 871 ==
LOC: EC 09:01 → 2SICU 10:26
PROVIDERS: ADMIT Internal Medicine; ATTEND Internal Medicine
PROC: 02HV33Z Insertion of Infusion Device into Superior Vena Cava, Percutaneous Approach (ICD-10-PCS; principal; 2021-07-06)
PROC: 4A133B1 Monitoring of Arterial Pressure, Peripheral, Percutaneous Approach (ICD-10-PCS; 2021-07-06)
PROC: 4A133J1 Monitoring of Arterial Pulse, Peripheral, Percutaneous Approach (ICD-10-PCS; 2021-07-06)
DX: A41.9 Sepsis, unspecified organism (principal); J96.01 Acute respiratory failure with hypoxia; K72.00 Acute and subacute hepatic failure without coma; R65.21 Severe sepsis with septic shock; E43 Unspecified severe protein-calorie malnutrition; J69.0 Pneumonitis due to inhalation of food and vomit; I50.32 Chronic diastolic (congestive) heart failure; N17.9 Acute kidney failure, unspecified; N39.0 Urinary tract infection, site not specified; E87.2 Acidosis; Z68.1 Body mass index [BMI] 19.9 or less, adult; R00.1 Bradycardia, unspecified; Z51.5 Encounter for palliative care; Z66 Do not resuscitate; Z20.822 Contact with and (suspected) exposure to COVID-19; R68.0 Hypothermia, not associated with low environmental temperature; I11.0 Hypertensive heart disease with heart failure; F02.80 Dementia in other diseases classified elsewhere, unspecified severity, without behavioral disturbance, psychotic disturbance, mood disturbance, and anxiety; B96.5 Pseudomonas (aeruginosa) (mallei) (pseudomallei) as the cause of diseases classified elsewhere; E87.5 Hyperkalemia; E86.0 Dehydration; G20 Parkinson's disease; I48.91 Unspecified atrial fibrillation; Z79.02 Long term (current) use of antithrombotics/antiplatelets; Z79.82 Long term (current) use of aspirin; Z79.899 Other long term (current) drug therapy; Z87.891 Personal history of nicotine dependence; Z90.710 Acquired absence of both cervix and uterus
CPT/HCPCS: 36415; 71045; 80048; 80053; 81001; 82533; 83605; 83735; 83880; 84439; 84443; 84481; 84484; 85025; 85610; 85730; 87077; 87086; 87186; 87635; 93005; 96374; 96375; 99285